=== PATIENT | female | born 1985 | race Caucasian/White ===

== ENCOUNTER 2017-12-08 14:25 | Inpatient (IN) | payer BC ==
[2017-12-08 17:43] VITALS: BMI 25.5
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
[2017-12-08] MEDS ORDERED: ALBUTEROL SO4 8 GM HFA INHALER IH PRN (19:42)
[2017-12-08] MEDS ORDERED: guaiFENesin/D-METHORPHAN HB 10 ML UNIT-DOSE CUPS PO PRN (19:43)
[2017-12-08] MEDS ORDERED: chlordiazePOXIDE HCL 25 MG CAPSULE PO PRN (19:43)
[2017-12-08] MEDS ORDERED: MAGNESIUM HYDROX 2400MG/30ML ORAL SUSPENSION 30 ML CUP PO PRN (19:43)
[2017-12-08] MEDS ORDERED: IBUPROFEN 400 MG TABLET (FP) PO PRN (19:43)
[2017-12-08] MEDS ORDERED: METHADONE HCL 10 MG TABLET (FOR DETOX USE ONLY) PO ONE ×2 (19:43→23:00)
[2017-12-08] MEDS ORDERED: chlordiazePOXIDE HCL 25 MG CAPSULE PO ONE (19:43)
[2017-12-08] MEDS ORDERED: MENTHOL/PHENOL 1 EACH UD MM PRN (19:43)
[2017-12-08] MEDS ORDERED: MAG HYDROX/AL HYDROX/SIMETH 30 ML UNIT-DOSE CUP PO PRN (19:43)
[2017-12-08] MEDS ORDERED: ACETAMINOPHEN 325 MG TABLET (FP) PO PRN (19:43)
[2017-12-08] MEDS ORDERED: LOPERAMIDE HCL 2 MG CAPSULE PO PRN (19:43)
[2017-12-08] MEDS ORDERED: NICOTINE POLACRILEX 2 MG GUM BC PRN (19:43)
[2017-12-08] MEDS ORDERED: MAGNESIUM CITRATE 300 ML BOTTLE PO PRN (19:43)
[2017-12-08] MEDS ORDERED: P-EPHED 60MG/TRIPROLIDI 2.5MG TABLET PO PRN (19:43)
[2017-12-08] MEDS ORDERED: ALBUTEROL SO4 0.083% IH SOL 2.5 MG/3 ML VIAL.NEB. NEB PRN (19:56)
[2017-12-08] MEDS ORDERED: diphenhydrAMINE HCL 25 MG CAPSULE (FP) PO ONE (22:00)
[2017-12-08] MEDS: chlordiazePOXIDE HCL 25 MG CAPSULE PO SCH (23:44)
[2017-12-08] MEDS: THIAMINE HCL 100 MG TABLET (FP) PO SCH (23:45)
[2017-12-09] MEDS: chlordiazePOXIDE HCL 25 MG CAPSULE PO SCH ×2 (05:01→10:50)
[2017-12-09] MEDS ORDERED: METHADONE HCL 10 MG TABLET (FOR DETOX USE ONLY) PO SCH (10:00)
--- NOTE | 2017-12-09 10:11 | PN ---
S CIWA - CIWA Score Nausea/Vomitin-Mild Nausea/No Vomiting Muscle Tremors: 4-Moderate,w/Arms Extend Anxiety: 3 Agitation: 3 Paroxysmal Sweats: 1-Minimal Palms Moist Orientation: 0-Oriented Tacttile Disturbances: 1-Very Mild Itch/Numbness Auditory Disturbances: 0-None Visual Disturbances: 0-None Headache: 0-None Present CIWA-Ar Total Score: 13 [facility] COWS - Scale Resting Pulse: 0= [place] 80 or Below Sweatin= Chills/Flushing Restless Observation: 1= Difficult to Sit Still Pupil Size: 0= Normal to Room Light Bone or Joint Aches: 2= Severe Diffuse Aches Runny Nose/ Eye Tearin= Nasal Congestion GI Upset > 30mins: 2= Nausea/Diarrhea Tremor Observation of Outstretched Hands: 2= Slight Tremor Visible Yawning Observation: 2= >3x During Session Anxiety or Irritability: 2=Irritable/Anxious Goose Flesh Skin: 0=Smooth Skin COWS Score: 13 S Progress Note (SOAP) Subjective: joints pain restlessness anxiety sweat tremor irritable Objective: 12/09/17 10:11 Vital Signs Temperature 98.3 F 12/09/17 09:46 Pulse Rate 79 12/09/17 09:46 Respiratory Rate 18 12/09/17 09:46 Blood Pressure 104/65 12/09/17 09:46 O2 Sat by Pulse Oximetry (%) lab not available Assessment: 12/09/17 10:12 withdrawal sx Plan: continue detox
[2017-12-09 10:18] LABS: HEMATOCRIT 36.5 % (32.4-45.2); HEMOGLOBIN 12.2 GM/dL (10.7-15.3); MCH 30.1 pg (25.7-33.7); MCHC 33.4 g/dl (32.0-36.0); MEAN CELL VOLUME 90.1 fl (80-96); MEAN PLT VOLUME 8.4 fl (7.5-11.1); PLATELET COUNT 323 K/MM3 (134-434); RBC 4.05 M/mm3 (3.60-5.2); RDW 14.9 % (11.6-15.6); WHITE BLOOD COUNT 9.5 K/mm3 (4.0-10.0)
[2017-12-09 10:28] LABS: CHLORIDE 106 mmol/L (98-107); POTASSIUM 4.2 mmol/L (3.5-5.1); SODIUM 143 mmol/L (136-145)
[2017-12-09 10:41] LABS: ALBUMIN 3.4 g/dl (3.4-5.0); ALK PHOS 50 U/L (45-117); ANION GAP 9 MMOL/L (8-16); BILIRUBIN,TOTAL 0.2 mg/dL (0.2-1); BLOOD UREA NITROGEN 13 mg/dL (7-18); CALCIUM 8.9 mg/dL (8.5-10.1); CO2 28 mmol/L (21-32); CREATININE 0.7 mg/dL (0.55-1.3); GLUCOSE,RANDOM 83 mg/dL (74-106); SGOT/AST 9 U/L (15-37); SGPT/ALT 16 U/L (13-61); TOT PROT 6.3 g/dl (6.4-8.2)
[2017-12-09] MEDS: PRENATAL VITAMINS W/ FOLIC ACID TABLET (FP) PO SCH (10:50)
[2017-12-09] MEDS: NICOTINE 21 MG/24 HOURS TOPICAL PATCH TD SCH (10:51)
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
[2017-12-09] MEDS: GABAPENTIN 300 MG CAPSULE (FP) PO SCH ×2 (14:21→23:02)
[2017-12-09] MEDS: hydrOXYzine PAMOATE 50 MG CAPSULE (FP) PO PRN (16:38)
--- NOTE | 2017-12-09 16:45 | EKG ---
Test Reason : Blood Pressure : / mmHG Vent. Rate : 062 BPM Atrial Rate : 062 BPM P-R Int : 110 ms QRS Dur : 084 ms QT Int : 434 ms P-R-T Axes : -06 037 032 degrees QTc Int : 440 ms SINUS RHYTHM WITH SHORT TX OTHERWISE NORMAL ECG WHEN COMPARED WITH ECG OF 04-JUN-2017 09:13, NO SIGNIFICANT CHANGE WAS FOUND Confirmed by Morris Menjivar ([id number]) on 12/09/2017 4:45:05 PM Referred By: Confirmed By:Morris Menjivar
[2017-12-09] MEDS ORDERED: diazePAM 5 MG TABLET PO ONE ×2 (18:00→22:00)
[2017-12-09] MEDS: diazePAM 5 MG TABLET PO PRN (19:27)
[2017-12-09] MEDS ORDERED: traZODone HCL 50 MG TABLET (FP) PO SCH (22:00)
[2017-12-09] MEDS ORDERED: chlordiazePOXIDE HCL 25 MG CAPSULE PO SCH (23:00)
[2017-12-09] MEDS: THIAMINE HCL 100 MG TABLET (FP) PO SCH (23:02)
[2017-12-10] MEDS: diazePAM 5 MG TABLET PO SCH ×3 (06:09→22:05)
[2017-12-10] MEDS: GABAPENTIN 300 MG CAPSULE (FP) PO SCH ×3 (06:09→22:05)
[2017-12-10] MEDS: METHADONE HCL 5 MG TABLET (FOR DETOX USE ONLY) PO SCH (10:45)
[2017-12-10] MEDS: PRENATAL VITAMINS W/ FOLIC ACID TABLET (FP) PO SCH (10:46)
[2017-12-10] MEDS: NICOTINE 21 MG/24 HOURS TOPICAL PATCH TD SCH (10:46)
[2017-12-10] MEDS: diazePAM 5 MG TABLET PO PRN ×2 (10:46→17:17)
--- NOTE | 2017-12-10 11:17 | PN ---
[facility] CIWA - CIWA Score Nausea/Vomitin-No Nausea/No Vomiting Muscle Tremors: 4-Moderate,w/Arms Extend Anxiety: 1-Mildly Anxious Agitation: 1-Slight > Activity Paroxysmal Sweats: No Perspiration Orientation: 0-Oriented Tacttile Disturbances: 0-None Auditory Disturbances: 0-None Visual Disturbances: 0-None Headache: 0-None Present CIWA-Ar Total Score: 6 S COWS - Scale Resting Pulse: 1= [place] 81-100 Sweatin= No chills or Flushing Restless Observation: 1= Difficult to Sit Still Pupil Size: 0= Normal to Room Light Bone or Joint Aches: 0= None Runny Nose/ Eye Tearin= None GI Upset > 30mins: 0= None Tremor Observation of Outstretched Hands: 2= Slight Tremor Visible Yawning Observation: 0= None Anxiety or Irritability: 0= None Goose Flesh Skin: 0=Smooth Skin COWS Score: 4 S Progress Note (SOAP) Subjective: C/o tremors and increased anxiety. Denies nausea/vomiting. Objective: A&O x3. Mild tremors of hands. Abd S/NT/BS+ 12/10/17 11:15 x Vital Signs 12/10/17 12/10/17 12/10/17 03:30 06:00 09:56 Temperature 97.3 F L 97.7 F Pulse Rate 74 86 Respiratory 18 18 20 Rate Blood Pressure 112/72 118/88 Lab Results WBC 9.5 K/mm3 (4.0-10.0) 12/09/17 07:00 RBC 4.05 M/mm3 (3.60-5.2) 12/09/17 07:00 Hgb 12.2 GM/dL (10.7-15.3) 12/09/17 07:00 Hct 36.5 % (32.4-45.2) 12/09/17 07:00 MCV 90.1 fl (80-96) 12/09/17 07:00 MCHC 33.4 g/dl (32.0-36.0) 12/09/17 07:00 RDW 14.9 % (11.6-15.6) 12/09/17 07:00 Plt Count 323 K/MM3 (134-434) 12/09/17 07:00 Sodium 143 mmol/L (136-145) 12/09/17 07:00 Potassium 4.2 mmol/L (3.5-5.1) 12/09/17 07:00 Chloride 106 mmol/L (98-107) 12/09/17 07:00 Carbon Dioxide 28 mmol/L (21-32) 12/09/17 07:00 Anion Gap 9 MMOL/L (8-16) 12/09/17 07:00 BUN 13 mg/dL (7-18) 12/09/17 07:00 Creatinine 0.7 mg/dL (0.55-1.3) 12/09/17 07:00 Random Glucose 83 mg/dL (74-106) 12/09/17 07:00 Calcium 8.9 mg/dL (8.5-10.1) 12/09/17 07:00 Labs reviewed. Assessment: Withdrawal symptoms. Plan: Continue detox. Encourage prn vistaril
[2017-12-10] MEDS: ESCITALOPRAM OXALATE 20 MG TABLET (FP) PO SCH (13:31)
[2017-12-10 16:08] LABS: URINE APPEARANCE CLEAR; URINE BILIRUBIN NEGATIVE (<2.0 mg/dL); URINE COLOR STRAW; URINE GLUCOSE (UA) NEGATIVE (NEGATIVE); URINE KETONE NEGATIVE (NEGATIVE); URINE LEUK ESTERASE TRACE (NEGATIVE); URINE NITRITE NEGATIVE (NEGATIVE); URINE PROTEIN NEGATIVE (NEGATIVE); URINE UROBILINOGEN NEGATIVE mg/dL (0.2-1.0)
[2017-12-10 16:35] LABS: EPI CELLS RARE /HPF (FEW); URINE MUCUS RARE
--- NOTE | 2017-12-10 18:09 | PN ---
[facility] Progress Note Note: Psychiatric nurse practitioner note: Patient reports poor sleep with trazodone 50mg. Pt. requesting seroquel 50mg for insomnia
[2017-12-10] MEDS: QUEtiapine FUMARATE 50 MG TABLET PO SCH (22:05)
[2017-12-10] MEDS: THIAMINE HCL 100 MG TABLET (FP) PO SCH (22:05)
[2017-12-10] MEDS ORDERED: chlordiazePOXIDE 5 MG CAPSULE PO SCH (23:00)
[2017-12-11] MEDS: diazePAM 5 MG TABLET PO PRN ×4 (06:00→22:28)
[2017-12-11] MEDS: GABAPENTIN 300 MG CAPSULE (FP) PO SCH ×3 (06:00→22:28)
[2017-12-11] MEDS: ESCITALOPRAM OXALATE 20 MG TABLET (FP) PO SCH (10:39)
[2017-12-11] MEDS: METHADONE HCL 5 MG TABLET (FOR DETOX USE ONLY) PO SCH (10:40)
[2017-12-11] MEDS: PRENATAL VITAMINS W/ FOLIC ACID TABLET (FP) PO SCH (10:40)
[2017-12-11] MEDS: diazePAM 5 MG TABLET PO SCH ×2 (10:40→22:30)
[2017-12-11] MEDS: NICOTINE 21 MG/24 HOURS TOPICAL PATCH TD SCH (10:42)
--- NOTE | 2017-12-11 11:45 | PN ---
[facility] Progress Note (SOAP) Subjective: sweat tremor body aches joints pain restlessness trouble sleep at night Objective: 12/11/17 11:44 Vital Signs Temperature 97.5 F L 12/11/17 10:19 Pulse Rate 87 12/11/17 10:19 Respiratory Rate 18 12/11/17 10:19 Blood Pressure 131/77 12/11/17 10:19 O2 Sat by Pulse Oximetry (%) Laboratory Last Values WBC 9.5 K/mm3 (4.0-10.0) 12/09/17 07:00 RBC 4.05 M/mm3 (3.60-5.2) 12/09/17 07:00 Hgb 12.2 GM/dL (10.7-15.3) 12/09/17 07:00 Hct 36.5 % (32.4-45.2) 12/09/17 07:00 MCV 90.1 fl (80-96) 12/09/17 07:00 MCH 30.1 pg (25.7-33.7) 12/09/17 07:00 MCHC 33.4 g/dl (32.0-36.0) 12/09/17 07:00 RDW 14.9 % (11.6-15.6) 12/09/17 07:00 Plt Count 323 K/MM3 (134-434) 12/09/17 07:00 MPV 8.4 fl (7.5-11.1) 12/09/17 07:00 Sodium 143 mmol/L (136-145) 12/09/17 07:00 Potassium 4.2 mmol/L (3.5-5.1) 12/09/17 07:00 Chloride 106 mmol/L (98-107) 12/09/17 07:00 Carbon Dioxide 28 mmol/L (21-32) 12/09/17 07:00 Anion Gap 9 MMOL/L (8-16) 12/09/17 07:00 BUN 13 mg/dL (7-18) 12/09/17 07:00 Creatinine 0.7 mg/dL (0.55-1.3) 12/09/17 07:00 Creat Clearance w eGFR > 60 (>60) 12/09/17 07:00 Random Glucose 83 mg/dL (74-106) 12/09/17 07:00 Calcium 8.9 mg/dL (8.5-10.1) 12/09/17 07:00 Total Bilirubin 0.2 mg/dL (0.2-1) 12/09/17 07:00 AST 9 U/L (15-37) L 12/09/17 07:00 ALT 16 U/L (13-61) 12/09/17 07:00 Alkaline Phosphatase 50 U/L (45-117) 12/09/17 07:00 Total Protein 6.3 g/dl (6.4-8.2) L 12/09/17 07:00 Albumin 3.4 g/dl (3.4-5.0) 12/09/17 07:00 Urine Color Straw 12/10/17 10:15 Urine Appearance Clear 12/10/17 10:15 Urine pH 5.0 (5.0-8.0) 12/10/17 10:15 Ur Specific [place] 1.009 (1.001-1.035) 12/10/17 10:15 Urine Protein Negative (NEGATIVE) 12/10/17 10:15 Urine Glucose (UA) Negative (NEGATIVE) 12/10/17 10:15 Urine Ketones Negative (NEGATIVE) 12/10/17 10:15 Urine Blood Negative (NEGATIVE) 12/10/17 10:15 Urine Nitrite Negative (NEGATIVE) 12/10/17 10:15 Urine Bilirubin Negative (<2.0 mg/dL) 12/10/17 10:15 Urine Urobilinogen Negative mg/dL (0.2-1.0) 12/10/17 10:15 Ur Leukocyte Esterase Trace (NEGATIVE) 12/10/17 10:15 Urine WBC (Auto) 3 /hpf (3-5) 12/10/17 10:15 Urine RBC (Auto) 1 /hpf (0-3) 12/10/17 10:15 Ur Epithelial Cells Rare /HPF (FEW) 12/10/17 10:15 Urine Mucus Rare 12/10/17 10:15 RPR Titer Nonreactive (NONREACTIVE) 12/09/17 07:00 HIV 1&2 Antibody Screen Negative 12/09/17 07:00 HIV P24 Antigen Negative 12/09/17 07:00 lab noted Assessment: 12/11/17 11:44 withdrawal sx Plan: continue detox
[2017-12-11] MEDS: THIAMINE HCL 100 MG TABLET (FP) PO SCH (22:27)
[2017-12-11] MEDS: QUEtiapine FUMARATE 50 MG TABLET PO SCH (22:29)
[2017-12-11] MEDS ORDERED: chlordiazePOXIDE HCL 10 MG CAPSULE PO SCH (23:00)
[2017-12-12] MEDS: GABAPENTIN 300 MG CAPSULE (FP) PO SCH ×3 (06:08→22:25)
[2017-12-12] MEDS: diazePAM 5 MG TABLET PO PRN ×2 (06:09→13:52)
[2017-12-12] MEDS ORDERED: METHADONE HCL 10 MG TABLET (FOR DETOX USE ONLY) PO SCH (10:00)
[2017-12-12] MEDS ORDERED: diazePAM 5 MG TABLET PO SCH (10:00)
[2017-12-12] MEDS: ESCITALOPRAM OXALATE 20 MG TABLET (FP) PO SCH (10:34)
[2017-12-12] MEDS: PRENATAL VITAMINS W/ FOLIC ACID TABLET (FP) PO SCH (10:34)
[2017-12-12] MEDS: NICOTINE 21 MG/24 HOURS TOPICAL PATCH TD SCH (10:35)
--- NOTE | 2017-12-12 14:06 | PN ---
[facility] Progress Note Note: PATIENT TOLERATING DETOX WELL. MILD ANXIETY REGARDING DISCHARGE TOMORROW. PATIENT ARRANGING OUTPATIENT TREATMENT AT [facility]. MEDICALLY STABLE. IN NAD. ALERT AND ORIENTED X 3. SKIN WARM AND DRY. CAR SIS2. RESP CTA BL. EXT NO EDEMA. Vital Signs Temperature 98.1 F 12/12/17 13:36 Pulse Rate 88 12/12/17 13:36 Respiratory Rate 18 12/12/17 13:36 Blood Pressure 120/57 L 12/12/17 13:36 O2 Sat by Pulse Oximetry (%) Laboratory Tests 12/09/17 12/09/17 12/09/17 07:00 07:00 07:00 WBC 9.5 RBC 4.05 Hgb 12.2 Hct 36.5 MCV 90.1 MCH 30.1 MCHC 33.4 RDW 14.9 Plt Count 323 MPV 8.4 Sodium 143 Potassium 4.2 Chloride 106 Carbon Dioxide 28 Anion Gap 9 BUN 13 Creatinine 0.7 Creat Clearance w eGFR > 60 Random Glucose 83 Calcium 8.9 Total Bilirubin 0.2 AST 9 L ALT 16 Alkaline Phosphatase 50 Total Protein 6.3 L Albumin 3.4 Urine Color Urine Appearance Urine pH Ur Specific [place] Urine Protein Urine Glucose (UA) Urine Ketones Urine Blood Urine Nitrite Urine Bilirubin Urine Urobilinogen Ur Leukocyte Esterase Urine WBC (Auto) Urine RBC (Auto) Ur Epithelial Cells Urine Mucus RPR Titer HIV 1&2 Antibody Screen Negative HIV P24 Antigen Negative 12/09/17 12/10/17 07:00 10:15 WBC RBC Hgb Hct MCV MCH MCHC RDW Plt Count MPV Sodium Potassium Chloride Carbon Dioxide Anion Gap BUN Creatinine Creat Clearance w eGFR Random Glucose Calcium Total Bilirubin AST ALT Alkaline Phosphatase Total Protein Albumin Urine Color Straw Urine Appearance Clear Urine pH 5.0 Ur Specific [place] 1.009 Urine Protein Negative Urine Glucose (UA) Negative Urine Ketones Negative Urine Blood Negative Urine Nitrite Negative Urine Bilirubin Negative Urine Urobilinogen Negative Ur Leukocyte Esterase Trace Urine WBC (Auto) 3 Urine RBC (Auto) 1 Ur Epithelial Cells Rare Urine Mucus Rare RPR Titer Nonreactive HIV 1&2 Antibody Screen HIV P24 Antigen A/P WITHDRAWAL SYNDROME PATIENT MEDICALLY STABLE CONTINUE DETOX PER PROTOCOL
[2017-12-12] MEDS: hydrOXYzine PAMOATE 50 MG CAPSULE (FP) PO PRN ×2 (19:03→22:22)
[2017-12-12] MEDS ORDERED: diazePAM 5 MG TABLET PO ONE (22:00)
[2017-12-12] MEDS: QUEtiapine FUMARATE 50 MG TABLET PO SCH (22:22)
[2017-12-12] MEDS: THIAMINE HCL 100 MG TABLET (FP) PO SCH (23:20)
[2017-12-13] MEDS ORDERED: METHADONE HCL 5 MG TABLET (FOR DETOX USE ONLY) PO SCH (06:00)
[2017-12-13] MEDS: GABAPENTIN 300 MG CAPSULE (FP) PO SCH (06:01)
[2017-12-13 06:42] VITALS: TEMP 97.2
[2017-12-13] MEDS: ESCITALOPRAM OXALATE 20 MG TABLET (FP) PO SCH (09:22)
[2017-12-13] MEDS: PRENATAL VITAMINS W/ FOLIC ACID TABLET (FP) PO SCH (09:22)
[2017-12-13] MEDS: hydrOXYzine PAMOATE 50 MG CAPSULE (FP) PO PRN (09:22)
[2017-12-13] MEDS: NICOTINE 21 MG/24 HOURS TOPICAL PATCH TD SCH (09:23)
[2017-12-13 10:25] VITALS: BP 130/80; PULSE 62
--- NOTE | 2017-12-13 13:58 | DS ---
[facility] Detox Discharge Summary Admission Date: 12/08/17 Discharge Date: 12/13/17 - History Present History: Alcohol Dependence, Cannabis Dependence, Cocaine Dependence, Opioid Dependence, Sedative Dependence, Pcp Dependence Additional Comments: Asthma, drug induced seizure disorder - Physical Exam Results Vital Signs: Vital Signs Temperature 97.2 F L 12/13/17 08:35 Pulse Rate 62 12/13/17 08:35 Respiratory Rate 18 12/13/17 08:35 Blood Pressure 130/80 12/13/17 08:35 O2 Sat by Pulse Oximetry (%) Pertinent Admission Physical Exam Findings: Withdrawal sx Laboratory Last Values WBC 9.5 K/mm3 (4.0-10.0) 12/09/17 07:00 RBC 4.05 M/mm3 (3.60-5.2) 12/09/17 07:00 Hgb 12.2 GM/dL (10.7-15.3) 12/09/17 07:00 Hct 36.5 % (32.4-45.2) 12/09/17 07:00 MCV 90.1 fl (80-96) 12/09/17 07:00 MCH 30.1 pg (25.7-33.7) 12/09/17 07:00 MCHC 33.4 g/dl (32.0-36.0) 12/09/17 07:00 RDW 14.9 % (11.6-15.6) 12/09/17 07:00 Plt Count 323 K/MM3 (134-434) 12/09/17 07:00 MPV 8.4 fl (7.5-11.1) 12/09/17 07:00 Sodium 143 mmol/L (136-145) 12/09/17 07:00 Potassium 4.2 mmol/L (3.5-5.1) 12/09/17 07:00 Chloride 106 mmol/L (98-107) 12/09/17 07:00 Carbon Dioxide 28 mmol/L (21-32) 12/09/17 07:00 Anion Gap 9 MMOL/L (8-16) 12/09/17 07:00 BUN 13 mg/dL (7-18) 12/09/17 07:00 Creatinine 0.7 mg/dL (0.55-1.3) 12/09/17 07:00 Creat Clearance w eGFR > 60 (>60) 12/09/17 07:00 Random Glucose 83 mg/dL (74-106) 12/09/17 07:00 Calcium 8.9 mg/dL (8.5-10.1) 12/09/17 07:00 Total Bilirubin 0.2 mg/dL (0.2-1) 12/09/17 07:00 AST 9 U/L (15-37) L 12/09/17 07:00 ALT 16 U/L (13-61) 12/09/17 07:00 Alkaline Phosphatase 50 U/L (45-117) 12/09/17 07:00 Total Protein 6.3 g/dl (6.4-8.2) L 12/09/17 07:00 Albumin 3.4 g/dl (3.4-5.0) 12/09/17 07:00 Urine Color Straw 12/10/17 10:15 Urine Appearance Clear 12/10/17 10:15 Urine pH 5.0 (5.0-8.0) 12/10/17 10:15 Ur Specific [place] 1.009 (1.001-1.035) 12/10/17 10:15 Urine Protein Negative (NEGATIVE) 12/10/17 10:15 Urine Glucose (UA) Negative (NEGATIVE) 12/10/17 10:15 Urine Ketones Negative (NEGATIVE) 12/10/17 10:15 Urine Blood Negative (NEGATIVE) 12/10/17 10:15 Urine Nitrite Negative (NEGATIVE) 12/10/17 10:15 Urine Bilirubin Negative (<2.0 mg/dL) 12/10/17 10:15 Urine Urobilinogen Negative mg/dL (0.2-1.0) 12/10/17 10:15 Ur Leukocyte Esterase Trace (NEGATIVE) 12/10/17 10:15 Urine WBC (Auto) 3 /hpf (3-5) 12/10/17 10:15 Urine RBC (Auto) 1 /hpf (0-3) 12/10/17 10:15 Ur Epithelial Cells Rare /HPF (FEW) 12/10/17 10:15 Urine Mucus Rare 12/10/17 10:15 RPR Titer Nonreactive (NONREACTIVE) 12/09/17 07:00 HIV 1&2 Antibody Screen Negative 12/09/17 07:00 HIV P24 Antigen Negative 12/09/17 07:00 Labs noted - Treatment Hospital Course: Detox Protocol Followed, Detoxed Safely, Responded well, Discharged Condition Good - Medication Discharge Medications: Ambulatory Orders Alprazolam [Xanax] 2 mg PO QID 06/03/17 Escitalopram Oxalate [Lexapro -] 40 mg PO DAILY #30 tablet 06/04/17 Albuterol Sulfate Inhaler - [Ventolin HFA Inhaler -] 2 inh PO Q4H PRN #1 inhaler 06/08/17 Gabapentin [Neurontin -] 300 mg PO BID #60 capsule 06/08/17 - Diagnosis (1) Alcohol dependence with withdrawal Status: Acute Qualifiers: Complication of substance-induced condition: uncomplicated Qualified Code(s ): F10.230 - Alcohol dependence with withdrawal, uncomplicated (2) Cannabis dependence, uncomplicated Status: Acute (3) Cocaine dependence, uncomplicated Status: Acute (4) Nicotine dependence Status: Acute Qualifiers: Nicotine product type: cigarettes (5) Opioid dependence with withdrawal Status: Acute (6) PCP (phencyclidine) abuse Status: Acute (7) Asthma Status: Chronic Qualifiers: Asthma severity: mild Asthma persistence: unspecified Asthma complication type: uncomplicated Qualified Code(s): J45.909 - Unspecified asthma, uncomplicated - AMA Did Patient Leave Against Medical Advice: No
== END 2017-12-13 10:12 | disposition home or self-care (01) | DRG 773 ==
LOC: YASAS 14:25 → Y6N 20:52
PROC: HZ2ZZZZ Detoxification Services for Substance Abuse Treatment (ICD-10-PCS; principal; 2017-12-08)
DX: F11.23 Opioid dependence with withdrawal (principal); F10.230 Alcohol dependence with withdrawal, uncomplicated; F13.230 Sedative, hypnotic or anxiolytic dependence with withdrawal, uncomplicated; F14.20 Cocaine dependence, uncomplicated; F16.20 Hallucinogen dependence, uncomplicated; F12.20 Cannabis dependence, uncomplicated; F17.210 Nicotine dependence, cigarettes, uncomplicated; F19.24 Other psychoactive substance dependence with psychoactive substance-induced mood disorder; F19.282 Other psychoactive substance dependence with psychoactive substance-induced sleep disorder; F32.9 Major depressive disorder, single episode, unspecified; J45.909 Unspecified asthma, uncomplicated; Z86.2 Personal history of diseases of the blood and blood-forming organs and certain disorders involving the immune mechanism; Z86.69 Personal history of other diseases of the nervous system and sense organs
CPT/HCPCS: 36415; 80053; 81003; 81015; 85027; 86593; 87389; 93005; 93010

== ENCOUNTER 2018-01-15 18:06 | Inpatient (IN) | payer BC ==
[2018-01-15 20:51] VITALS: BMI 25.1
--- NOTE | 2018-01-15 22:13 | HP ---
COWS - Scale Resting Pulse: 1= [place] 81-100 Sweatin=Flushed/Facial Moisture Restless Observation: 1= Difficult to Sit Still Pupil Size: 1= Pupils >than Normal Bone or Joint Aches: 4=Acute Joint/Muscle Pain Runny Nose/ Eye Tearin= Nasal Congestion GI Upset > 30mins: 2= Nausea/Diarrhea (diarrhea x 2) Tremor Observation: 4= Gross Tremor/Twitching Yawning Observation: 0= None Anxiety or Irritability: 2=Irritable/Anxious Goose Flesh Skin: 0=Smooth Skin COWS Score: 18 CIWA Score - CIWA Score Nausea/Vomitin-Mild Nausea/No Vomiting Muscle Tremors: 4-Moderate,w/Arms Extend Anxiety: 3 Agitation: 3 Paroxysmal Sweats: 2 Orientation: 0-Oriented Tacttile Disturbances: 0-None Auditory Disturbances: 0-None Visual Disturbances: 0-None Headache: 5-Severe CIWA-Ar Total Score: 18 Admission [facility] - HPI Chief Complaint: Heroin and alcohol withdrawal symptoms Allergies/Adverse Reactions: Allergies Allergy/AdvReac Type Severity Reaction Status Date / Time No Known Allergies Allergy Verified 06/03/17 11:17 History of Present Illness: 32 years old female with about 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 Patient has been in previous detox and reports four years of sobriety. She has medical history of seizures, asthma, anemia, anxiety and depression. Patient is on Alprazolam 8mg ta blet oral daily. Dispensed on 01/13/2018 for 30 days as prescribed by Dr. Brad Lopez. Patient denies suicidal ideation at this time. Exam Limitations: No Limitations - Ebola screening Have you traveled outside of the country in the last 21 days: No (N) Have you had contact with anyone from an Ebola affected area: No Have you been sick,other than usual withdrawal symptoms: No Do you have a fever: No - Review of Systems Constitutional: Chills, Malaise, Changes in sleep, Weakness EENT: reports: No Symptoms Reported, Other (wears contact) Respiratory: reports: No Symptoms reported Cardiac: reports: No Symptoms Reported GI: reports: Diarrhea (x 2), Poor Appetite, Poor Fluid Intake, Vomiting : reports: No Symptoms Reported Musculoskeletal: reports: Back Pain Integumentary: reports: Dryness Neuro: reports: Tremors Endocrine: reports: No Symptoms Reported Hematology: reports: No Symptoms Reported Psychiatric: reports: Mood/Affect Appropiate, Orientated x3, Depressed Other Systems: Reviewed and Negative Patient History - Patient Medical History Hx Anemia: Yes (NOT CURRENTLY ON MED) Hx Asthma: Yes (MDI) Hx Chronic Obstructive Pulmonary Disease (COPD): No Hx Cancer: No Hx Cardiac Disorders: No Hx Congestive Heart Failure: No Hx Hypertension: No Hx Hypercholesterolemia: No Hx Pacemaker: No HX Cerebrovascular Accident: No Hx Seizures: Yes (xanax seizures last 1 tr ago.) Hx Dementia: No Hx Diabetes: No Hx Gastrointestinal Disorders: No Hx Liver Disease: No Hx Genitourinary Disorders: No Hx Sexually Transmitted Disorders: No Hx Renal Disease (ESRD): No Hx Thyroid Disease: No Hx Human Immunodeficiency Virus (HIV): No (NEGATIVE 2018) Hx Hepatitis C: No (NEGATIVE HX) Hx Depression: Yes (Lexapro, Seroquel) Hx Suicide Attempt: No (DENIES PAST OR PRESENT S/I) Hx Bipolar Disorder: No Hx Schizophrenia: No Other Medical History: Anxiety - Xanax - Patient Surgical History Past Surgical History: Yes Hx Neurologic Surgery: No Hx Cataract Extraction: No Hx Cardiac Surgery: No Hx Lung Surgery: No Hx Breast Surgery: No Hx Breast Biopsy: No Hx Abdominal Surgery: No Hx Appendectomy: No Hx Cholecystectomy: No Hx Genitourinary Surgery: No Hx Section: Yes (2005, 2016) Hx Orthopedic Surgery: No Anesthesia Reaction: No - PPD History Previous Implant?: Yes Documented Results: Negative w/proof Implanted On Prior [facility] Admission?: Yes Date: 06/05/17 PPD to be Administered?: No - Reproductive History Patient is a Female of Child Bearing Age (11 -55 yrs old): Yes Last Menstrual Period: 12/16/17 Patient : No - Smoking Cessation Smoking history: Current every day smoker Have you smoked in the past 12 months: Yes Aproximately how many cigarettes per day: 20 Hx Chewing Tobacco Use: No Initiated information on smoking cessation: Yes 'Breaking Loose' booklet given: 01/15/18 - Substance & Tx. History Hx Alcohol Use: Yes Hx Substance Use: Yes Substance Use Type: Cocaine, Heroin, Marijuana, Opiates, Tranquilizers Hx Substance Use Treatment: Yes ([facility]) - Substances Abused Alcohol Route: Oral Frequency: Daily Amount used: 6 PACK OF SALMON Age of first use: 29 Date of Last Use: 01/13/18 Heroin Route: Inhalation Frequency: Daily Amount used: 10 BAGS Age of first use: 27 Date of Last Use: 01/15/18 Family Disease History - Family Disease History Family Disease History: Heart Disease: Sister (HEART TRANSPLANT-), CA: Sister, Other: Grandparent ( ), Father (PARKINSONS DISEASE), Mother (HTN ) Admission Physical Exam [facility] - Vital Signs Vital Signs: Vital Signs - 24 hr 01/15/18 20:49 Temperature 97.7 F Pulse Rate 88 Respiratory 18 Rate Blood Pressure 109/70 - Physical General Appearance: Yes: Moderate Distress HEENTM: Yes: Normal ENT Inspection, Normal Voice, ANICETO Respiratory: Yes: Lungs Clear, Normal Breath Sounds, No Respiratory Distress Neck: Yes: Supple Breast: Yes: Breast Exam Deferred Cardiology: Yes: Regular Rhythm, Regular Rate Abdominal: Yes: Normal Bowel Sounds Genitourinary: Yes: Within Normal Limits Back: Yes: Within Normal Limits Musculoskeletal: Yes: Within Normal Limits Extremities: Yes: Tremors 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: Alert, Normal Mood/Affect Integumentary: Yes: Warm Lymphatic: Yes: Within Normal Limits - Diagnostic (1) Depression Current Visit: Yes Status: Chronic Qualifiers: Depression Type: unspecified Qualified Code(s): F32.9 - Major depressive disorder, single episode, unspecified (2) Anxiety Current Visit: Yes Status: Chronic (3) Cannabis dependence, uncomplicated Current Visit: Yes Status: Chronic (4) Cocaine dependence, uncomplicated Current Visit: Yes Status: Chronic (5) Nicotine dependence Current Visit: Yes Status: Chronic Qualifiers: Nicotine product type: cigarettes Substance use status: uncomplicated Qualified Code(s): F17.210 - Nicotine dependence, cigarettes, uncomplicated (6) Opioid dependence with withdrawal Current Visit: Yes Status: Chronic (7) Asthma Current Visit: Yes Status: Chronic Qualifiers: Asthma severity: mild Asthma persistence: unspecified Asthma complication type: uncomplicated Qualified Code(s): J45.909 - Unspecified asthma, uncomplicated (8) History of anemia Current Visit: Yes Status: Suspected (9) Hx of seizure disorder Current Visit: Yes Status: Suspected Cleared for Admission S - Detox or Rehab S Level of Care: Medically Managed Detox Regimen/Protocol: Methadone/Librium S Breath Alcohol Content Breath Alcohol Content: 0 Urine Pregancy Test - Result Urine Test Results: Negative- NO Line Present Urine Drug Screen - Results Drug Screen Negative: No Urine Drug Screen Results: THC-Marijuana, VAMSI-Cocaine, OPI-Opiates, BZO- Benzodiazepines, MTD-Methadone, OXY-Oxycodone, FEN-Fentanyl
[2018-01-15] MEDS ORDERED: MENTHOL/PHENOL 1 EACH UD MM PRN (22:24)
[2018-01-15] MEDS ORDERED: MAGNESIUM CITRATE 300 ML BOTTLE PO PRN (22:24)
[2018-01-15] MEDS ORDERED: chlordiazePOXIDE HCL 25 MG CAPSULE PO PRN (22:24)
[2018-01-15] MEDS ORDERED: METHADONE HCL 10 MG TABLET (FOR DETOX USE ONLY) PO ONE ×2 (22:24→23:00)
[2018-01-15] MEDS ORDERED: MAG HYDROX/AL HYDROX/SIMETH 30 ML UNIT-DOSE CUP PO PRN (22:24)
[2018-01-15] MEDS ORDERED: IBUPROFEN 400 MG TABLET (FP) PO PRN (22:24)
[2018-01-15] MEDS ORDERED: guaiFENesin/D-METHORPHAN HB 10 ML UNIT-DOSE CUPS PO PRN (22:24)
[2018-01-15] MEDS ORDERED: LOPERAMIDE HCL 2 MG CAPSULE PO PRN (22:24)
[2018-01-15] MEDS ORDERED: NICOTINE POLACRILEX 2 MG GUM BC PRN (22:24)
[2018-01-15] MEDS ORDERED: MAGNESIUM HYDROX 2400MG/30ML ORAL SUSPENSION 30 ML CUP PO PRN (22:24)
[2018-01-15] MEDS ORDERED: P-EPHED 60MG/TRIPROLIDI 2.5MG TABLET PO PRN (22:24)
[2018-01-15] MEDS ORDERED: ACETAMINOPHEN 325 MG TABLET (FP) PO PRN (22:24)
[2018-01-15] MEDS ORDERED: ALBUTEROL SO4 8 GM HFA INHALER IH PRN (22:27)
[2018-01-15] MEDS ORDERED: chlordiazePOXIDE HCL 25 MG CAPSULE PO SCH (23:00)
[2018-01-16] MEDS ORDERED: chlordiazePOXIDE HCL 25 MG CAPSULE PO PRN (00:49)
[2018-01-16] MEDS ORDERED: chlordiazePOXIDE HCL 25 MG CAPSULE PO ONE (00:49)
[2018-01-16] MEDS ORDERED: METHADONE HCL 10 MG TABLET (FOR DETOX USE ONLY) PO ONE ×3 (00:56→23:00)
[2018-01-16] MEDS: chlordiazePOXIDE HCL 25 MG CAPSULE PO SCH ×4 (05:36→22:43)
--- NOTE | 2018-01-16 09:42 | EKG ---
Test Reason : Blood Pressure : / mmHG Vent. Rate : 078 BPM Atrial Rate : 078 BPM P-R Int : 120 ms QRS Dur : 080 ms QT Int : 382 ms P-R-T Axes : 022 037 022 degrees QTc Int : 435 ms NORMAL SINUS RHYTHM NORMAL ECG WHEN COMPARED WITH ECG OF 08-DEC-2017 23:12, NO SIGNIFICANT CHANGE WAS FOUND Confirmed by LYNETTE RANDLE MD ([id number]) on 01/16/2018 9:42:10 AM Referred By: Confirmed By:LYNETTE RANDLE MD
[2018-01-16] MEDS ORDERED: METHADONE HCL 10 MG TABLET (FOR DETOX USE ONLY) PO SCH (10:00)
[2018-01-16] MEDS: PRENATAL VITAMINS W/ FOLIC ACID TABLET (FP) PO SCH (10:24)
[2018-01-16] MEDS: NICOTINE 14 MG/24 HOURS TOPICAL PATCH TD SCH (10:25)
[2018-01-16 10:36] LABS: HEMATOCRIT 35.1 % (32.4-45.2); HEMOGLOBIN 11.9 GM/dL (10.7-15.3); MCH 30.8 pg (25.7-33.7); MEAN CELL VOLUME 90.4 fl (80-96); MEAN PLT VOLUME 8.9 fl (7.5-11.1); PLATELET COUNT 321 K/MM3 (134-434); RBC 3.88 M/mm3 (3.60-5.2); RDW 15.2 % (11.6-15.6); WHITE BLOOD COUNT 10.3 K/mm3 (4.0-10.0)
[2018-01-16 10:44] LABS: ALBUMIN 3.1 g/dl (3.4-5.0); ALK PHOS 57 U/L (45-117); ANION GAP 8 MMOL/L (8-16); BILIRUBIN,TOTAL 0.2 mg/dL (0.2-1); BLOOD UREA NITROGEN 16 mg/dL (7-18); CALCIUM 8.3 mg/dL (8.5-10.1); CHLORIDE 106 mmol/L (98-107); CO2 29 mmol/L (21-32); CREATININE 0.9 mg/dL (0.55-1.3); GLUCOSE,RANDOM 97 mg/dL (74-106); SGOT/AST 16 U/L (15-37); SGPT/ALT 23 U/L (13-61); SODIUM 143 mmol/L (136-145)
--- NOTE | 2018-01-16 11:44 | PN ---
S CIWA - CIWA Score Nausea/Vomitin-No Nausea/No Vomiting Muscle Tremors: 4-Moderate,w/Arms Extend Anxiety: 3 Agitation: 4-Moderately Restless Paroxysmal Sweats: 3 Orientation: 0-Oriented Tacttile Disturbances: 0-None Auditory Disturbances: 0-None Visual Disturbances: 0-None Headache: 0-None Present CIWA-Ar Total Score: 14 [facility] COWS - Scale Resting Pulse: 1= [place] 81-100 Sweatin=Flushed/Facial Moisture Restless Observation: 1= Difficult to Sit Still Pupil Size: 0= Normal to Room Light Bone or Joint Aches: 2= Severe Diffuse Aches Runny Nose/ Eye Tearin= Runny Nose/Eyes GI Upset > 30mins: 0= None Tremor Observation of Outstretched Hands: 2= Slight Tremor Visible Yawning Observation: 2= >3x During Session Anxiety or Irritability: 2=Irritable/Anxious Goose Flesh Skin: 0=Smooth Skin COWS Score: 14 S Progress Note (SOAP) Subjective: shakes sweats body aches agitation interrupted sleep chills Objective: 01/16/18 11:43 Vital Signs Temperature 97.9 F 01/16/18 09:52 Pulse Rate 94 H 01/16/18 09:52 Respiratory Rate 17 01/16/18 09:52 Blood Pressure 121/69 01/16/18 09:52 O2 Sat by Pulse Oximetry (%) Laboratory Tests 01/16/18 01/16/18 07:00 07:00 WBC 10.3 H RBC 3.88 Hgb 11.9 Hct 35.1 MCV 90.4 MCH 30.8 MCHC 34.0 RDW 15.2 Plt Count 321 MPV 8.9 Sodium 143 Potassium 4.0 Chloride 106 Carbon Dioxide 29 Anion Gap 8 BUN 16 Creatinine 0.9 Creat Clearance w eGFR > 60 Random Glucose 97 Calcium 8.3 L Total Bilirubin 0.2 AST 16 ALT 23 Alkaline Phosphatase 57 Total Protein 6.0 L Albumin 3.1 L rest of labs pending aaox3 lying in bed no acute distress Assessment: 01/16/18 11:44 withdrawal sx Plan: continue detox increase fluids pending labs
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
[2018-01-16] MEDS: THIAMINE HCL 100 MG TABLET (FP) PO SCH (22:44)
[2018-01-16] MEDS: QUEtiapine FUMARATE 50 MG TABLET PO SCH (22:44)
[2018-01-16] MEDS: GABAPENTIN 300 MG CAPSULE (FP) PO SCH (22:44)
[2018-01-16] MEDS ORDERED: chlordiazePOXIDE HCL 25 MG CAPSULE PO SCH (23:00)
[2018-01-17] MEDS: GABAPENTIN 300 MG CAPSULE (FP) PO SCH ×3 (05:40→22:20)
[2018-01-17] MEDS: chlordiazePOXIDE HCL 25 MG CAPSULE PO SCH ×4 (05:40→22:19)
[2018-01-17] MEDS ORDERED: METHADONE HCL 10 MG TABLET (FOR DETOX USE ONLY) PO ONE (10:00)
[2018-01-17] MEDS ORDERED: METHADONE HCL 5 MG TABLET (FOR DETOX USE ONLY) PO SCH (10:00)
[2018-01-17] MEDS: PRENATAL VITAMINS W/ FOLIC ACID TABLET (FP) PO SCH (10:23)
[2018-01-17] MEDS: ESCITALOPRAM OXALATE 20 MG TABLET (FP) PO SCH (10:23)
[2018-01-17] MEDS: NICOTINE 14 MG/24 HOURS TOPICAL PATCH TD SCH (10:29)
[2018-01-17] MEDS ORDERED: NAPROXEN 500 MG TABLET (FP) PO SCH (12:15)
--- NOTE | 2018-01-17 17:32 | PN ---
[facility] CIWA - CIWA Score Nausea/Vomitin-Mild Nausea/No Vomiting Muscle Tremors: 2 Anxiety: 4-Mod. Anxious/Guarded Agitation: 4-Moderately Restless Paroxysmal Sweats: No Perspiration Orientation: 0-Oriented Tacttile Disturbances: 0-None Auditory Disturbances: 0-None Visual Disturbances: 0-None Headache: 0-None Present CIWA-Ar Total Score: 11 [facility] COWS - Scale Resting Pulse: 1= [place] 81-100 Sweatin= No chills or Flushing Restless Observation: 1= Difficult to Sit Still Pupil Size: 0= Normal to Room Light Bone or Joint Aches: 2= Severe Diffuse Aches Runny Nose/ Eye Tearin= None GI Upset > 30mins: 2= Nausea/Diarrhea (Mild nausea w/o vomiting.) Tremor Observation of Outstretched Hands: 1= Tremor [place], Not Seen Yawning Observation: 0= None Anxiety or Irritability: 2=Irritable/Anxious Goose Flesh Skin: 0=Smooth Skin COWS Score: 9 S Progress Note (SOAP) Subjective: C/o multiple withdrawal symptoms. (see COWS and CIWA) Also c/o inflammation both hips and requesting toradol injections. Objective: A&O x 3. Gait steady. No increased erythema or warmth of hips. Pacing unit. Vital Signs 01/17/18 01/17/18 09:36 14:14 Temperature 97.7 F 98.1 F Pulse Rate 91 H 79 Respiratory 16 18 Rate Blood Pressure 131/59 L 138/69 Lab Results WBC 10.3 K/mm3 (4.0-10.0) H 01/16/18 07:00 RBC 3.88 M/mm3 (3.60-5.2) 01/16/18 07:00 Hgb 11.9 GM/dL (10.7-15.3) 01/16/18 07:00 Hct 35.1 % (32.4-45.2) 01/16/18 07:00 MCV 90.4 fl (80-96) 01/16/18 07:00 MCHC 34.0 g/dl (32.0-36.0) 01/16/18 07:00 RDW 15.2 % (11.6-15.6) 01/16/18 07:00 Plt Count 321 K/MM3 (134-434) 01/16/18 07:00 Sodium 143 mmol/L (136-145) 01/16/18 07:00 Potassium 4.0 mmol/L (3.5-5.1) 01/16/18 07:00 Chloride 106 mmol/L (98-107) 01/16/18 07:00 Carbon Dioxide 29 mmol/L (21-32) 01/16/18 07:00 Anion Gap 8 MMOL/L (8-16) 01/16/18 07:00 BUN 16 mg/dL (7-18) 01/16/18 07:00 Creatinine 0.9 mg/dL (0.55-1.3) 01/16/18 07:00 Random Glucose 97 mg/dL (74-106) 01/16/18 07:00 Calcium 8.3 mg/dL (8.5-10.1) L 01/16/18 07:00 Labs reviewed. Assessment: Withdrawal symptoms Plan: Continue detox. Discussed management of pain w/ ibuprofen and its anti-inflammatory benefits as well as pain relief. Reviewed stress reduction exercises.
[2018-01-17] MEDS ORDERED: KETOROLAC TROMETHAMINE 30 MG/1 ML VIAL IM ONE (20:48)
[2018-01-17] MEDS: QUEtiapine FUMARATE 50 MG TABLET PO SCH (22:20)
[2018-01-17] MEDS: MELATONIN 5 MG TABLETS PO PRN (22:20)
[2018-01-17] MEDS: THIAMINE HCL 100 MG TABLET (FP) PO SCH (22:20)
[2018-01-17] MEDS ORDERED: chlordiazePOXIDE 5 MG CAPSULE PO SCH (23:00)
[2018-01-17] MEDS: KETOROLAC TROMETHAMINE 10 MG TABLET PO PRN (23:03)
[2018-01-18] MEDS: chlordiazePOXIDE 5 MG CAPSULE PO SCH ×4 (05:51→22:16)
[2018-01-18] MEDS: GABAPENTIN 300 MG CAPSULE (FP) PO SCH ×3 (05:52→22:16)
[2018-01-18] MEDS ORDERED: METHADONE HCL 5 MG TABLET (FOR DETOX USE ONLY) PO ONE (10:00)
[2018-01-18] MEDS: PRENATAL VITAMINS W/ FOLIC ACID TABLET (FP) PO SCH (10:14)
[2018-01-18] MEDS: ESCITALOPRAM OXALATE 20 MG TABLET (FP) PO SCH (10:14)
[2018-01-18] MEDS: NICOTINE 14 MG/24 HOURS TOPICAL PATCH TD SCH (14:02)
[2018-01-18] MEDS ORDERED: BACLOFEN 10 MG TABLET (FP) PO ONE (14:45)
--- NOTE | 2018-01-18 14:53 | PN ---
[facility] Progress Note (SOAP) Subjective: anxiety restlessness patient reported that had bilateraly hip replacement 2009 taking oxycodone for pain wants tramadol wants toradol for pain discuss risks of tramadol and toradol adjacent with methadone patient agrees naproxin and muscle relaxnt help one dose of naproxin with one dose of baclofen patient wants xanax 8 mg that she is taking xanax 8 mg every day and patient wants the xanax 8 mg now discuss librium detox regimen for alcohol withdrawal sx patient stated that she has anxiety and taking xanax 8 mg and is doing well patient wants xanax encourage the patient discuss anxiety with psychiatrist that possible xanax replacement during the detox period and return home can becane xanax 8 mg po daily last filled 01/13/18 120 pills Objective: 01/18/18 15:01 Vital Signs Temperature 97.1 F L 01/18/18 14:18 Pulse Rate 96 H 01/18/18 14:18 Respiratory Rate 18 01/18/18 14:18 Blood Pressure 131/77 01/18/18 14:18 O2 Sat by Pulse Oximetry (%) Laboratory Last Values WBC 10.3 K/mm3 (4.0-10.0) H 01/16/18 07:00 RBC 3.88 M/mm3 (3.60-5.2) 01/16/18 07:00 Hgb 11.9 GM/dL (10.7-15.3) 01/16/18 07:00 Hct 35.1 % (32.4-45.2) 01/16/18 07:00 MCV 90.4 fl (80-96) 01/16/18 07:00 MCH 30.8 pg (25.7-33.7) 01/16/18 07:00 MCHC 34.0 g/dl (32.0-36.0) 01/16/18 07:00 RDW 15.2 % (11.6-15.6) 01/16/18 07:00 Plt Count 321 K/MM3 (134-434) 01/16/18 07:00 MPV 8.9 fl (7.5-11.1) 01/16/18 07:00 Sodium 143 mmol/L (136-145) 01/16/18 07:00 Potassium 4.0 mmol/L (3.5-5.1) 01/16/18 07:00 Chloride 106 mmol/L (98-107) 01/16/18 07:00 Carbon Dioxide 29 mmol/L (21-32) 01/16/18 07:00 Anion Gap 8 MMOL/L (8-16) 01/16/18 07:00 BUN 16 mg/dL (7-18) 01/16/18 07:00 Creatinine 0.9 mg/dL (0.55-1.3) 01/16/18 07:00 Creat Clearance w eGFR > 60 (>60) 01/16/18 07:00 Random Glucose 97 mg/dL (74-106) 01/16/18 07:00 Calcium 8.3 mg/dL (8.5-10.1) L 01/16/18 07:00 Total Bilirubin 0.2 mg/dL (0.2-1) 01/16/18 07:00 AST 16 U/L (15-37) 01/16/18 07:00 ALT 23 U/L (13-61) 01/16/18 07:00 Alkaline Phosphatase 57 U/L (45-117) 01/16/18 07:00 Total Protein 6.0 g/dl (6.4-8.2) L 01/16/18 07:00 Albumin 3.1 g/dl (3.4-5.0) L 01/16/18 07:00 RPR Titer Nonreactive (NONREACTIVE) 01/16/18 07:00 lab oted Assessment: 01/18/18 15:03 alcohol withdrawal sx opiate withdrawal sx Plan: continue detox from alcohol and opiate patient wants oxy for s/p hips replacement recommend methadone program or suboxone maintenaince program
[2018-01-18] MEDS ORDERED: NAPROXEN 500 MG TABLET (FP) PO ONE (15:00)
[2018-01-18] MEDS ORDERED: QUEtiapine FUMARATE 50 MG TABLET PO ONE (16:48)
--- NOTE | 2018-01-18 16:52 | PN ---
[facility] Progress Note Note: Psychiatric nurse practitioner inspector conveyor line note: Call received by nursing staff on 6N. Patient is labile, irritable, and demanding additional medications. Patient is disrupting the milieu and is having difficulty following directions from staff. Patient is complaining of worsening anxiety which is not being resolved with her current medication regime. Will order one time dose of seroquel 50mg qhs + vistaril 50mg q4h.
[2018-01-18] MEDS: hydrOXYzine PAMOATE 50 MG CAPSULE (FP) PO PRN ×2 (17:12→22:17)
[2018-01-18 20:48] LABS: URINE APPEARANCE CLOUDY; URINE BILIRUBIN NEGATIVE (<2.0 mg/dL); URINE COLOR YELLOW; URINE GLUCOSE (UA) NEGATIVE (NEGATIVE); URINE KETONE NEGATIVE (NEGATIVE); URINE LEUK ESTERASE TRACE (NEGATIVE); URINE NITRITE NEGATIVE (NEGATIVE); URINE PROTEIN NEGATIVE (NEGATIVE); URINE UROBILINOGEN NEGATIVE mg/dL (0.2-1.0)
[2018-01-18 20:54] LABS: EPI CELLS FEW /HPF (FEW); URINE MUCUS RARE
[2018-01-18] MEDS: MELATONIN 5 MG TABLETS PO PRN (22:16)
[2018-01-18] MEDS: KETOROLAC TROMETHAMINE 10 MG TABLET PO PRN (22:17)
[2018-01-18] MEDS: QUEtiapine FUMARATE 50 MG TABLET PO SCH (22:17)
[2018-01-18] MEDS: THIAMINE HCL 100 MG TABLET (FP) PO SCH (22:18)
[2018-01-18] MEDS ORDERED: chlordiazePOXIDE HCL 10 MG CAPSULE PO SCH (23:00)
[2018-01-19] MEDS: chlordiazePOXIDE HCL 10 MG CAPSULE PO SCH ×4 (05:27→22:28)
[2018-01-19] MEDS: GABAPENTIN 300 MG CAPSULE (FP) PO SCH ×3 (05:27→22:28)
[2018-01-19] MEDS ORDERED: HALOPERIDOL 2 MG TABLET PO PRN (08:18)
--- NOTE | 2018-01-19 09:25 | PN ---
Psychiatric Progress Note Vital Signs: Vital Signs Period Temp Pulse Resp BP Sys/Harrison Pulse Ox Last 24 Hr 97.1 F-97.9 F 72-96 18-18 105-147/64-80 Date of Session: 01/19/18 Chief Complaint:: aNXIETY, XANAX ADAN HPI: Patient reports anxiety amd agitation, irritability as well due to Xanax withdrawal as per patient, reports taking prior to admission 8mg of Xanax daily. Rec: Haldol 1mg po q4 prn for anxietyt. Patient reports Haldol 1mg is not en ough in the past. Rec: Haldol 2mg po q4 prn for agitation and anxiety. Benzthropin 1mg po bid Current Medications: Active Medications Generic Name Dose Route Start Last Admin Trade Name Freq PRN Reason Stop Dose Admin Acetaminophen 650 mg 01/15/18 22:24 Tylenol - PO Q4H PRN FEVER Al Hydroxide/Mg Hydroxide 30 ml 01/15/18 22:24 Mylanta Oral Suspension - PO Q6H PRN DYSPEPSIA Albuterol Sulfate 2 puff 01/15/18 22:27 Ventolin Hfa Inhaler - IH Q4H PRN ASTHMA Benztropine Mesylate 1 mg 01/19/18 10:00 Cogentin - PO BID ODETTE Chlordiazepoxide HCl 10 mg 01/19/18 05:00 01/19/18 05:27 Librium - PO 01/19/18 23:01 10 mg [id number] ODETTE Administration Escitalopram Oxalate 20 mg 01/17/18 10:00 01/18/18 10:14 Lexapro - PO 20 mg DAILY ODETTE Administration Eucalyptus/Menthol/Phenol/Sorbitol 1 each 01/15/18 22:24 Cepastat Lozenge - MM Q4H PRN SORE THROAT Gabapentin 600 mg 01/16/18 22:00 01/19/18 05:27 Neurontin - PO 600 mg TID ODETTE Administration Guaifenesin 10 ml 01/15/18 22:24 Robitussin Dm - PO Q6H PRN COUGH Haloperidol 2 mg 01/19/18 08:18 Haldol - PO Q4HWA PRN ANXIETY Haloperidol 2 mg 01/19/18 09:15 Haldol - PO Q4HWA PRN ANXIETY Hydroxyzine Pamoate 50 mg 01/18/18 16:48 01/18/18 22:17 Vistaril - PO 50 mg Q4H PRN Administration ANXIETY Ketorolac Tromethamine 10 mg 01/17/18 21:52 01/18/18 22:17 Toradol PO 01/22/18 00:00 10 mg Q6HPO PRN Administration PAIN LEVEL 1-5 Loperamide HCl 4 mg 01/15/18 22:24 Imodium - PO Q6H PRN DIARRHEA Magnesium Citrate 300 ml 01/15/18 22:24 Citroma - PO Q48H PRN CONSTIPATION Magnesium Hydroxide 30 ml 01/15/18 22:24 Milk Of Magnesia - PO DAILY PRN CONSTIPATION Melatonin 5 mg 01/15/18 22:00 01/18/18 22:16 Melatonin PO 5 mg HS PRN Administration INSOMNIA Methadone HCl 5 mg 01/21/18 06:00 Dolophine - PO 01/21/18 06:01 ONCE@0600 ONE Methadone HCl 15 mg 01/19/18 10:00 Dolophine - PO 01/19/18 10:01 ONCE ONE Methadone HCl 10 mg 01/20/18 10:00 Dolophine - PO 01/20/18 10:01 ONCE ONE Nicotine 14 mg 01/16/18 10:00 01/18/18 14:02 Nicoderm Patch - TD Not Given DAILY ODETTE Nicotine Polacrilex 2 mg 01/15/18 22:24 Nicorette Gum - BC Q2H PRN NICOTINE REPLACEMENT RX Multivit/Folic Acid/Iron 1 tab 01/16/18 10:00 01/18/18 10:14 Vitamins (Sjr) - PO 1 tab DAILY ODETTE Administration Pseudoephedrine/Triprolidine 1 combo 01/15/18 22:24 Actifed - PO TID PRN NASAL CONGESTION Quetiapine Fumarate 50 mg 01/16/18 22:00 01/18/18 22:17 Seroquel - PO 50 mg HS ODETTE Administration Thiamine HCl 100 mg 01/16/18 22:00 01/18/18 22:18 Vitamin B1 - PO 100 mg HS ODETTE Administration Medication(s) Change(s): Rec: Haldol 2mg po q4 prn for agitation and anxiety. Benzthropin 1mg po bid Mental Status Exam - Mental Status Exam Alert and Oriented to: Place, Person Cognitive Function: Fair Patient Appearance: Unkempt Mood: Anxious, Irritable Affect: Labile Patient Behavior: Cooperative Speech Pattern: Appropriate Voice Loudness: Normal Thought Process: Goal Oriented Thought Disorder: Being Controlled Hallucinations: Denies Suicidal Ideation: Denies Homicidal Ideation: Denies Insight/Judgement: Fair Sleep: Difficulty falling asleep Appetite: Weight gain Muscle strength/Tone: Normal Gait/Station: Normal Additional Comments: Rec: Haldol 2mg po q4 prn for agitation and anxiety. Benzthropin 1mg po bid Psychiatric Treatment Plan - Problem List (1) Opioid dependence with withdrawal Current Visit: Yes (2) Sedative hypnotic or anxiolytic dependence Current Visit: Yes (3) Substance induced mood disorder Current Visit: Yes (4) Substance-induced sleep disorder Current Visit: Yes (5) Anxiety Current Visit: Yes (6) Asthma Current Visit: Yes Qualifiers: Asthma severity: mild Asthma persistence: unspecified Asthma complication type: uncomplicated Qualified Code(s): J45.909 - Unspecified asthma, uncomplicated (7) Cannabis dependence, uncomplicated Current Visit: Yes (8) Cocaine dependence, uncomplicated Current Visit: Yes (9) Nicotine dependence Current Visit: Yes Qualifiers: Nicotine product type: cigarettes Substance use status: uncomplicated Qualified Code(s): F17.210 - Nicotine dependence, cigarettes, uncomplicated (10) History of anemia Current Visit: Yes (11) Hx of seizure disorder Current Visit: Yes (12) Alcohol dependence with withdrawal Current Visit: No Qualifiers: Complication of substance-induced condition: uncomplicated Qualified Code(s ): F10.230 - Alcohol dependence with withdrawal, uncomplicated (13) Benzodiazepine abuse Current Visit: No (14) Drug-induced mood disorder Current Visit: No (15) PCP (phencyclidine) abuse Current Visit: No (16) Substance induced mood disorder Current Visit: No (17) Substance-induced sleep disorder Current Visit: No Initial treatment plan: Rec: Haldol 2mg po q4 prn for agitation and anxiety. Benzthropin 1mg po bid
[2018-01-19] MEDS ORDERED: METHADONE HCL 10 MG TABLET (FOR DETOX USE ONLY) PO SCH (10:00)
[2018-01-19] MEDS ORDERED: METHADONE HCL 5 MG TABLET (FOR DETOX USE ONLY) PO ONE (10:00)
[2018-01-19] MEDS ORDERED: ESCITALOPRAM OXALATE 20 MG TABLET (FP) PO SCH (10:00)
--- NOTE | 2018-01-19 10:09 | PN ---
[facility] Progress Note (SOAP) Subjective: chronic hip pain sweats irritable agitation anxiety Objective: 01/19/18 10:06 Vital Signs Temperature 97.5 F L 01/19/18 06:00 Pulse Rate 72 01/19/18 06:00 Respiratory Rate 18 01/19/18 06:00 Blood Pressure 105/64 01/19/18 06:00 O2 Sat by Pulse Oximetry (%) aaox3 ambulating no acute distress Assessment: 01/19/18 10:06 withdrawal sx Plan: continue detox increase fluids advised pt she can ask for torodol as ordered for her pain. naproxen d/c because it is contraindicated lidocaine patch ordered
[2018-01-19] MEDS: PRENATAL VITAMINS W/ FOLIC ACID TABLET (FP) PO SCH (10:15)
[2018-01-19] MEDS: BENZTROPINE MESYLATE 1 MG TABLET (FP) PO SCH ×2 (10:15→22:25)
[2018-01-19] MEDS: ESCITALOPRAM OXALATE 20 MG TABLET (FP) PO SCH (10:15)
[2018-01-19] MEDS: NICOTINE 14 MG/24 HOURS TOPICAL PATCH TD SCH (10:16)
[2018-01-19] MEDS ORDERED: LIDOCAINE 5% TOPICAL PATCH TP ONE (10:30)
[2018-01-19] MEDS: HALOPERIDOL 1 MG TABLET (FP) PO PRN ×3 (11:31→22:29)
[2018-01-19] MEDS: KETOROLAC TROMETHAMINE 10 MG TABLET PO PRN (11:33)
[2018-01-19] MEDS: CYCLOBENZAPRINE HCL 10 MG TABLET (FP) PO PRN ×2 (14:45→22:29)
[2018-01-19] MEDS: hydrOXYzine PAMOATE 50 MG CAPSULE (FP) PO PRN (14:45)
[2018-01-19] MEDS ORDERED: LIDOCAINE PATCH REMOVAL MC SCH (22:00)
[2018-01-19] MEDS: THIAMINE HCL 100 MG TABLET (FP) PO SCH (22:28)
[2018-01-19] MEDS: QUEtiapine FUMARATE 50 MG TABLET PO SCH (22:29)
[2018-01-20] MEDS ORDERED: METHADONE HCL 5 MG TABLET (FOR DETOX USE ONLY) PO SCH (06:00)
[2018-01-20] MEDS: GABAPENTIN 300 MG CAPSULE (FP) PO SCH ×3 (06:01→22:22)
--- NOTE | 2018-01-20 09:08 | PN ---
[facility] Progress Note (SOAP) Subjective: I prefer naproxen and not torodol chronic back pain sweats Objective: 01/20/18 09:07 Vital Signs Temperature 97.7 F 01/20/18 07:42 Pulse Rate 83 01/20/18 07:42 Respiratory Rate 16 01/20/18 07:42 Blood Pressure 109/64 01/20/18 07:42 O2 Sat by Pulse Oximetry (%) aaox3 ambulating no acute distress Assessment: 01/20/18 09:08 mild withdrawal sx Plan: continue detox naproxen 500mg bid torodol d/c lidocaine patch ordered d/c in am
[2018-01-20] MEDS ORDERED: LIDOCAINE 5% TOPICAL PATCH TP ONE (09:15)
[2018-01-20] MEDS ORDERED: LIDOCAINE 5% TOPICAL PATCH TP SCH (10:00)
[2018-01-20] MEDS ORDERED: METHADONE HCL 10 MG TABLET (FOR DETOX USE ONLY) PO ONE (10:00)
[2018-01-20] MEDS: CYCLOBENZAPRINE HCL 10 MG TABLET (FP) PO PRN ×3 (10:22→22:23)
[2018-01-20] MEDS: NAPROXEN 500 MG TABLET (FP) PO SCH ×2 (10:23→22:22)
[2018-01-20] MEDS: BENZTROPINE MESYLATE 1 MG TABLET (FP) PO SCH ×2 (10:23→22:23)
[2018-01-20] MEDS: NICOTINE 14 MG/24 HOURS TOPICAL PATCH TD SCH (10:23)
[2018-01-20] MEDS: ESCITALOPRAM OXALATE 20 MG TABLET (FP) PO SCH (10:23)
[2018-01-20] MEDS: PRENATAL VITAMINS W/ FOLIC ACID TABLET (FP) PO SCH (10:23)
[2018-01-20] MEDS: HALOPERIDOL 1 MG TABLET (FP) PO PRN ×3 (10:25→22:23)
[2018-01-20] MEDS: hydrOXYzine PAMOATE 50 MG CAPSULE (FP) PO PRN ×3 (13:02→22:24)
[2018-01-20] MEDS ORDERED: LIDOCAINE PATCH REMOVAL MC SCH (22:00)
[2018-01-20] MEDS: THIAMINE HCL 100 MG TABLET (FP) PO SCH (22:22)
[2018-01-20] MEDS: QUEtiapine FUMARATE 50 MG TABLET PO SCH (22:23)
[2018-01-21] MEDS ORDERED: METHADONE HCL 5 MG TABLET (FOR DETOX USE ONLY) PO ONE (06:00)
[2018-01-21] MEDS: GABAPENTIN 300 MG CAPSULE (FP) PO SCH (06:11)
[2018-01-21] MEDS: CYCLOBENZAPRINE HCL 10 MG TABLET (FP) PO PRN (06:15)
[2018-01-21] MEDS: hydrOXYzine PAMOATE 50 MG CAPSULE (FP) PO PRN (06:18)
--- NOTE | 2018-01-21 08:48 | DS ---
[facility] Detox Discharge Summary Admission Date: 01/15/18 Discharge Date: 01/21/18 - History Present History: Alcohol Dependence, Cannabis Dependence, Opioid Dependence, Sedative Dependence, Pcp Dependence - Physical Exam Results Vital Signs: Vital Signs Temperature 97.3 F L 01/21/18 06:52 Pulse Rate 80 01/21/18 06:52 Respiratory Rate 18 01/21/18 06:52 Blood Pressure 124/79 01/21/18 06:52 O2 Sat by Pulse Oximetry (%) - Treatment Hospital Course: Detox Protocol Followed, Detoxed Safely, Responded well, Discharged Condition Good, Rehab Referral Accepted - Medication Discharge Medications: Ambulatory Orders Alprazolam [Xanax] 2 mg PO QID 06/03/17 Escitalopram Oxalate [Lexapro -] 40 mg PO DAILY #30 tablet 06/04/17 Albuterol Sulfate Inhaler - [Ventolin HFA Inhaler -] 2 inh PO Q4H PRN #1 inhaler 06/08/17 Gabapentin [Neurontin -] 300 mg PO BID #60 capsule 06/08/17 Escitalopram Oxalate [Lexapro -] 20 mg PO DAILY #30 tablet 01/19/18 - Diagnosis (1) Opioid dependence with withdrawal Current Visit: Yes Status: Chronic (2) Sedative hypnotic or anxiolytic dependence Current Visit: Yes Status: Chronic (3) Substance induced mood disorder Current Visit: Yes Status: Acute (4) Substance-induced sleep disorder Current Visit: Yes Status: Acute (5) Anxiety Current Visit: Yes Status: Chronic (6) Asthma Current Visit: Yes Status: Chronic Qualifiers: Asthma severity: mild Asthma persistence: unspecified Asthma complication type: uncomplicated Qualified Code(s): J45.909 - Unspecified asthma, uncomplicated (7) Cannabis dependence, uncomplicated Current Visit: Yes Status: Chronic (8) Cocaine dependence, uncomplicated Current Visit: Yes Status: Chronic (9) Depression Current Visit: Yes Status: Chronic Qualifiers: Depression Type: unspecified Qualified Code(s): F32.9 - Major depressive disorder, single episode, unspecified (10) Nicotine dependence Current Visit: Yes Status: Chronic Qualifiers: Nicotine product type: cigarettes Substance use status: uncomplicated Qualified Code(s): F17.210 - Nicotine dependence, cigarettes, uncomplicated (11) History of anemia Current Visit: Yes Status: Suspected (12) Hx of seizure disorder Current Visit: Yes Status: Suspected (13) Alcohol dependence with withdrawal Current Visit: Yes Status: Acute Qualifiers: Complication of substance-induced condition: uncomplicated Qualified Code(s ): F10.230 - Alcohol dependence with withdrawal, uncomplicated (14) Benzodiazepine abuse Current Visit: No Status: Acute (15) Drug-induced mood disorder Current Visit: No Status: Acute (16) PCP (phencyclidine) abuse Current Visit: Yes Status: Chronic (17) Substance induced mood disorder Current Visit: No Status: Acute (18) Substance-induced sleep disorder Current Visit: No Status: Acute - AMA Did Patient Leave Against Medical Advice: No
[2018-01-21] MEDS: ESCITALOPRAM OXALATE 20 MG TABLET (FP) PO SCH (09:16)
[2018-01-21] MEDS: BENZTROPINE MESYLATE 1 MG TABLET (FP) PO SCH (09:16)
[2018-01-21] MEDS: PRENATAL VITAMINS W/ FOLIC ACID TABLET (FP) PO SCH (09:16)
[2018-01-21] MEDS: NAPROXEN 500 MG TABLET (FP) PO SCH (09:16)
[2018-01-21] MEDS: HALOPERIDOL 1 MG TABLET (FP) PO PRN (09:16)
[2018-01-21] MEDS: NICOTINE 14 MG/24 HOURS TOPICAL PATCH TD SCH (09:18)
[2018-01-21 09:42] VITALS: BP 145/80; PULSE 112; TEMP 97.7
[2018-01-21] MEDS ORDERED: LIDOCAINE 5% TOPICAL PATCH TP SCH (10:00)
== END 2018-01-21 09:55 | disposition home or self-care (01) | DRG 773 ==
LOC: YASAS 18:06 → Y6N 22:47
PROC: HZ2ZZZZ Detoxification Services for Substance Abuse Treatment (ICD-10-PCS; principal; 2018-01-15)
DX: F11.23 Opioid dependence with withdrawal (principal); F10.230 Alcohol dependence with withdrawal, uncomplicated; F13.20 Sedative, hypnotic or anxiolytic dependence, uncomplicated; F14.20 Cocaine dependence, uncomplicated; F12.20 Cannabis dependence, uncomplicated; F16.10 Hallucinogen abuse, uncomplicated; F17.210 Nicotine dependence, cigarettes, uncomplicated; F32.9 Major depressive disorder, single episode, unspecified; F19.24 Other psychoactive substance dependence with psychoactive substance-induced mood disorder; F19.282 Other psychoactive substance dependence with psychoactive substance-induced sleep disorder; F41.9 Anxiety disorder, unspecified; J45.909 Unspecified asthma, uncomplicated; Z86.69 Personal history of other diseases of the nervous system and sense organs
CPT/HCPCS: 36415; 80053; 81003; 81015; 85027; 86593; 93005; 93010; J0475

== ENCOUNTER 2018-06-10 12:16 | Inpatient (IN) | payer BC ==
[2018-06-10 16:47] VITALS: BMI 23.6
--- NOTE | 2018-06-10 18:03 | HP ---
COWS - Scale Resting Pulse: 0= [place] 80 or Below Sweatin= Chills/Flushing Restless Observation: 1= Difficult to Sit Still Pupil Size: 1= Pupils >than Normal Bone or Joint Aches: 1= Mild Discomfort Runny Nose/ Eye Tearin= Runny Nose/Eyes GI Upset > 30mins: 3= Vomiting/Diarrhea Tremor Observation: 1= Tremor [place], Not Seen Yawning Observation: 0= None Anxiety or Irritability: 2=Irritable/Anxious Goose Flesh Skin: 0=Smooth Skin COWS Score: 12 CIWA Score - Admission Criteria OASAS Guidelines: Admission for Medically Managed Detox: Requires at least one of the followin. CIWA greater than 12 2. Seizures within the past 24 hours 3. Delirium tremens within the past 24 hours 4. Hallucinations within the past 24 hours 5. Acute intervention needed for co occurring medical disorder 6. Acute intervention needed for co occurring psychiatric disorder 7. Severe withdrawal that cannot be handled at a lower level of care (continued vomiting, continued diarrhea, abnormal vital signs) requiring intravenous medication and/or fluids 8. Admission ROS [facility] Chief Complaint: heroin detox Allergies/Adverse Reactions: Allergies Allergy/AdvReac Type Severity Reaction Status Date / Time No Known Allergies Allergy Verified 06/10/18 16:59 History of Present Illness: 33 yo female with hx nicotine and heroin (nasal) dependence is here seeking detox. PMHX: Asthma, PTSD, anxiety and depression. Last detox [facility] December 2017. Denies hx of seizures or blackouts. Exam Limitations: No Limitations - Ebola screening Have you traveled outside of the country in the last 21 days: No Have you had contact with anyone from an Ebola affected area: No Have you been sick,other than usual withdrawal symptoms: No - Review of Systems Constitutional: Chills, Loss of Appetite, Changes in sleep, Unintentional Wgt. Loss EENT: reports: Nose Congestion (runny nose) Respiratory: reports: No Symptoms reported Cardiac: reports: No Symptoms Reported GI: reports: Nausea, Poor Appetite, Poor Fluid Intake, Vomiting : reports: No Symptoms Reported Musculoskeletal: reports: Back Pain, Muscle Pain Integumentary: reports: No Symptoms Reported Neuro: reports: Headache Endocrine: reports: Increased Thirst Hematology: reports: Anemia Psychiatric: reports: Orientated x3, Anxious Other Systems: Reviewed and Negative Patient History - Patient Medical History Hx Anemia: Yes (NOT CURRENTLY ON MED) Hx Asthma: Yes Hx Chronic Obstructive Pulmonary Disease (COPD): No Hx Cancer: No Hx Cardiac Disorders: No Hx Congestive Heart Failure: No Hx Hypertension: No Hx Hypercholesterolemia: No Hx Pacemaker: No HX Cerebrovascular Accident: No Hx Seizures: No Hx Dementia: No Hx Diabetes: No Hx Gastrointestinal Disorders: No Hx Liver Disease: No Hx Genitourinary Disorders: No Hx Sexually Transmitted Disorders: No Hx Renal Disease (ESRD): No Hx Thyroid Disease: No Hx Human Immunodeficiency Virus (HIV): No (NEGATIVE 2018) Hx Hepatitis C: No (NEGATIVE HX) Hx Depression: Yes Hx Suicide Attempt: No (DENIES PAST OR PRESENT S/I) Hx Bipolar Disorder: No Hx Schizophrenia: No - Patient Surgical History Past Surgical History: Yes Hx Neurologic Surgery: No Hx Cataract Extraction: No Hx Cardiac Surgery: No Hx Lung Surgery: No Hx Breast Surgery: No Hx Breast Biopsy: No Hx Abdominal Surgery: No Hx Appendectomy: No Hx Cholecystectomy: No Hx Genitourinary Surgery: No Hx Section: Yes (2005, 2016) Hx Orthopedic Surgery: No Anesthesia Reaction: No - PPD History Date: 06/05/17 PPD to be Administered?: No - Reproductive History Last Menstrual Period: 12/16/17 - Smoking Cessation Smoking history: Current every day smoker Have you smoked in the past 12 months: Yes Aproximately how many cigarettes per day: 20 Hx Chewing Tobacco Use: No Initiated information on smoking cessation: Yes 'Breaking Loose' booklet given: 06/10/18 - Substance & Tx. History Hx Alcohol Use: Yes Hx Substance Use: Yes Substance Use Type: Alcohol, Heroin Hx Substance Use Treatment: Yes ([facility] December 2017) - Substances Abused Heroin Route: SNIFF Frequency: Daily Amount used: 8 BAGS Age of first use: 22 Date of Last Use: 06/10/18 xanax Route: Oral Frequency: Daily Amount used: 2 mg x 4 Age of first use: 27 Date of Last Use: 06/10/18 Family Disease History - Family Disease History Family Disease History: Heart Disease: Sister (HEART TRANSPLANT-), CA: Sister, Other: Grandparent ( ), Father (PARKINSONS DISEASE), Mother (HTN ) Admission Physical Exam BHS - Vital Signs Vital Signs: Vital Signs - 24 hr 06/10/18 16:44 Temperature 98.7 F Pulse Rate 66 Respiratory 18 Rate Blood Pressure 117/77 - Physical General Appearance: Yes: Disheveled, Thin, Anxious HEENTM: Yes: EOMI, Hearing grossly Normal, Normal ENT Inspection, Normocephalic , Normal Voice, ANICETO, Pharynx Normal, Tm's normal, Rhinorrhea Respiratory: Yes: Chest Non-Tender, Lungs Clear, Normal Breath Sounds, No Respiratory Distress, No Accessory Muscle Use Neck: Yes: Within Normal Limits Breast: Yes: Breast Exam Deferred Cardiology: Yes: Regular Rhythm, Regular Rate Abdominal: Yes: Normal Bowel Sounds, Non Tender, Flat, Soft Genitourinary: Yes: Within Normal Limits Back: Yes: Normal Inspection Musculoskeletal: Yes: full range of Motion, Gait Steady, Pelvis Stable, Back pain Extremities: Yes: Normal Capillary Refill, Normal Inspection, Normal Range of Motion, Non-Tender 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: 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, Fully Oriented, Alert, Motor Strength 5/5, Depressed Affect Integumentary: Yes: Normal Color, Warm, Diaphoresis Lymphatic: Yes: Within Normal Limits - Diagnostic (1) Sedative, hypnotic or anxiolytic dependence with withdrawal, uncomplicated Current Visit: Yes Status: Acute (2) Asthma Current Visit: Yes Status: Chronic Qualifiers: Asthma severity: mild Asthma persistence: unspecified Asthma complication type: uncomplicated Qualified Code(s): J45.909 - Unspecified asthma, uncomplicated (3) Nicotine dependence Current Visit: Yes Status: Chronic Qualifiers: Nicotine product type: cigarettes Substance use status: uncomplicated Qualified Code(s): F17.210 - Nicotine dependence, cigarettes, uncomplicated (4) Opioid dependence with withdrawal Current Visit: Yes Status: Acute Cleared for Admission [facility] - Detox or Rehab [facility] Level of Care: Medically Managed Detox Regimen/Protocol: Methadone/Valium [facility] Breath Alcohol Content Breath Alcohol Content: 0 Urine Pregancy Test - Result Urine Test Results: Negative - NO line present Urine Drug Screen - Results Drug Screen Negative: No Urine Drug Screen Results: THC-Marijuana, VAMSI-Cocaine, OPI-Opiates, BZO- Benzodiazepines, MTD-Methadone, BUP-Suboxone Inpatient Rehab Admission - Rehab Decision to Admit Inpatient rehab admission?: No
[2018-06-10] MEDS ORDERED: ALBUTEROL SO4 8 GM HFA INHALER IH PRN (18:11)
[2018-06-10] MEDS ORDERED: MAGNESIUM CITRATE 300 ML BOTTLE PO PRN (18:13)
[2018-06-10] MEDS ORDERED: NICOTINE POLACRILEX 2 MG GUM BUC PRN (18:13)
[2018-06-10] MEDS ORDERED: cloNIDine HCL 0.1 MG TABLET PO PRN (18:13)
[2018-06-10] MEDS ORDERED: ACETAMINOPHEN 325 MG TABLET (FP) PO PRN ×2 (18:13)
[2018-06-10] MEDS ORDERED: MAG HYDROX/AL HYDROX/SIMETH 30 ML UNIT-DOSE CUP PO PRN (18:13)
[2018-06-10] MEDS ORDERED: MENTHOL/PHENOL 1 EACH UD MM PRN (18:13)
[2018-06-10] MEDS ORDERED: BISMUTH SUBSALICYLATE 524 MG/30 ML UD PO PRN (18:13)
[2018-06-10] MEDS ORDERED: MAGNESIUM HYDROX 2400MG/30ML ORAL SUSPENSION 30 ML CUP PO PRN (18:13)
[2018-06-10] MEDS ORDERED: IBUPROFEN 400 MG TABLET (FP) PO PRN (18:13)
[2018-06-10] MEDS ORDERED: METHOCARBAMOL 500 MG TABLET PO PRN (18:13)
[2018-06-10] MEDS ORDERED: METHADONE HCL 10 MG TABLET (FOR DETOX USE ONLY) PO ONE ×2 (18:45→23:00)
[2018-06-10] MEDS: diazePAM 5 MG TABLET PO SCH (21:24)
[2018-06-10] MEDS: THIAMINE HCL 100 MG TABLET (FP) PO SCH (21:24)
[2018-06-10] MEDS ORDERED: QUEtiapine FUMARATE 100 MG TABLET (FP) PO ONE (22:00)
[2018-06-11] MEDS: diazePAM 5 MG TABLET PO SCH ×3 (06:20→23:29)
[2018-06-11] MEDS ORDERED: METHADONE HCL 10 MG TABLET (FOR DETOX USE ONLY) PO ONE (10:00)
--- NOTE | 2018-06-11 10:02 | PN ---
[facility] CIWA - CIWA Score Nausea/Vomitin-No Nausea/No Vomiting Muscle Tremors: 2 Anxiety: 3 Agitation: 2 Paroxysmal Sweats: 1-Minimal Palms Moist Orientation: 1-Uncertain about Date Tacttile Disturbances: 0-None Auditory Disturbances: 0-None Visual Disturbances: 0-None Headache: 1-Very Mild CIWA-Ar Total Score: 10 [facility] COWS - Scale Resting Pulse: 0= [place] 80 or Below Sweatin= Chills/Flushing Restless Observation: 0= Sits Still Pupil Size: 0= Normal to Room Light Bone or Joint Aches: 2= Severe Diffuse Aches Runny Nose/ Eye Tearin= Nasal Congestion GI Upset > 30mins: 2= Nausea/Diarrhea Tremor Observation of Outstretched Hands: 1= Tremor [place], Not Seen Yawning Observation: 1= 1-2x During Session Anxiety or Irritability: 2=Irritable/Anxious Goose Flesh Skin: 0=Smooth Skin COWS Score: 10 [facility] Progress Note (SOAP) Subjective: anxiety body aches discuss oral fluid and healthy dietary intake Objective: 06/11/18 10:02 Vital Signs Temperature 97.9 F 06/11/18 09:34 Pulse Rate 86 06/11/18 09:34 Respiratory Rate 16 06/11/18 09:34 Blood Pressure 94/44 L 06/11/18 09:34 O2 Sat by Pulse Oximetry (%) 06/11/18 10:02 lab pending Assessment: 06/11/18 10:02 withdrawal sx Plan: continue detox
[2018-06-11] MEDS: NICOTINE 14 MG/24 HOURS TOPICAL PATCH TD SCH (10:37)
[2018-06-11] MEDS: PRENATAL VITAMINS W/ FOLIC ACID TABLET (FP) PO SCH (10:37)
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
--- NOTE | 2018-06-11 11:02 | EKG ---
Test Reason : Blood Pressure : / mmHG Vent. Rate : 057 BPM Atrial Rate : 057 BPM P-R Int : 112 ms QRS Dur : 086 ms QT Int : 462 ms P-R-T Axes : 032 039 035 degrees QTc Int : 449 ms SINUS BRADYCARDIA OTHERWISE NORMAL ECG WHEN COMPARED WITH ECG OF 16-JAN-2018 00:20, T WAVE INVERSION NOW EVIDENT IN ANTERIOR LEADS Confirmed by CALIN VILLA MD ([id number]) on 06/11/2018 11:02:35 AM Referred By: Confirmed By:CALIN VILLA MD
[2018-06-11 11:09] LABS: HEMATOCRIT 34.3 % (32.4-45.2); HEMOGLOBIN 11.9 GM/dL (10.7-15.3); MCH 31.6 pg (25.7-33.7); MCHC 34.8 g/dl (32.0-36.0); MEAN CELL VOLUME 90.8 fl (80-96); MEAN PLT VOLUME 8.5 fl (7.5-11.1); PLATELET COUNT 335 K/MM3 (134-434); RBC 3.78 M/mm3 (3.60-5.2); RDW 15.3 % (11.6-15.6); WHITE BLOOD COUNT 9.6 K/mm3 (4.0-10.0)
[2018-06-11] MEDS ORDERED: ESCITALOPRAM OXALATE 10 MG TABLET (FP) ONE (11:15)
[2018-06-11] MEDS: ESCITALOPRAM OXALATE 20 MG TABLET (FP) PO SCH (11:19)
[2018-06-11] MEDS: QUEtiapine FUMARATE 50 MG TABLET PO SCH (11:19)
[2018-06-11 13:21] LABS: ALBUMIN 3.6 g/dl (3.4-5.0); ALK PHOS 44 U/L (45-117); BILIRUBIN,TOTAL 0.2 mg/dL (0.2-1); BLOOD UREA NITROGEN 13 mg/dL (7-18); CALCIUM 9.5 mg/dL (8.5-10.1); CHLORIDE 104 mmol/L (98-107); CREATININE 0.9 mg/dL (0.55-1.3); GLUCOSE,RANDOM 106 mg/dL (74-106); POTASSIUM 3.9 mmol/L (3.5-5.1); SGPT/ALT 14 U/L (13-61); SODIUM 138 mmol/L (136-145); TOT PROT 6.6 g/dl (6.4-8.2)
[2018-06-11 13:49] LABS: ANION GAP 7 MMOL/L (8-16); CO2 27 mmol/L (21-32); SGOT/AST 8 U/L (15-37)
[2018-06-11] MEDS: GABAPENTIN 300 MG CAPSULE (FP) PO SCH ×2 (14:39→23:28)
[2018-06-11] MEDS: QUEtiapine FUMARATE 100 MG TABLET (FP) PO SCH (23:28)
[2018-06-11] MEDS: THIAMINE HCL 100 MG TABLET (FP) PO SCH (23:29)
[2018-06-12] MEDS: GABAPENTIN 300 MG CAPSULE (FP) PO SCH ×3 (06:04→22:19)
[2018-06-12] MEDS: diazePAM 5 MG TABLET PO PRN ×3 (06:04→19:54)
[2018-06-12] MEDS ORDERED: METHADONE HCL 10 MG TABLET (FOR DETOX USE ONLY) PO ONE (10:00)
[2018-06-12] MEDS: QUEtiapine FUMARATE 50 MG TABLET PO SCH (10:02)
[2018-06-12] MEDS: ESCITALOPRAM OXALATE 20 MG TABLET (FP) PO SCH (10:02)
[2018-06-12] MEDS: NICOTINE 14 MG/24 HOURS TOPICAL PATCH TD SCH (10:02)
[2018-06-12] MEDS: diazePAM 5 MG TABLET PO SCH ×2 (10:02→22:18)
[2018-06-12] MEDS: PRENATAL VITAMINS W/ FOLIC ACID TABLET (FP) PO SCH (10:02)
--- NOTE | 2018-06-12 12:25 | PN ---
BHS COWS - Scale Resting Pulse: 1= [place] 81-100 Sweatin= Chills/Flushing Restless Observation: 1= Difficult to Sit Still Pupil Size: 1= Pupils >than Normal Bone or Joint Aches: 1= Mild Discomfort Runny Nose/ Eye Tearin= Nasal Congestion GI Upset > 30mins: 1= Stomach Cramp Tremor Observation of Outstretched Hands: 0= None Yawning Observation: 0= None Anxiety or Irritability: 0= None [facility]HS Progress Note (SOAP) Subjective: pt states doing well overall, will go to [facility] after d/c from detox here O: Vital Signs - 24 hr 06/11/18 06/11/18 06/11/18 13:05 17:56 21:30 Temperature 98.3 F 97.8 F 97.7 F Pulse Rate 76 58 L 55 L Respiratory 18 18 18 Rate Blood Pressure 100/61 92/59 L 91/51 L 06/12/18 06/12/18 06/12/18 00:30 03:30 06:36 Temperature 97.5 F L Pulse Rate 64 Respiratory 18 16 18 Rate Blood Pressure 106/70 06/12/18 09:45 Temperature 97.8 F Pulse Rate 68 Respiratory 18 Rate Blood Pressure 103/61 Laboratory Tests 06/11/18 06/11/18 06/11/18 07:30 07:30 07:30 WBC 9.6 RBC 3.78 Hgb 11.9 Hct 34.3 MCV 90.8 MCH 31.6 MCHC 34.8 RDW 15.3 Plt Count 335 MPV 8.5 Sodium 138 Potassium 3.9 Chloride 104 Carbon Dioxide 27 Anion Gap 7 L BUN 13 Creatinine 0.9 Creat Clearance w eGFR 72.11 Random Glucose 106 Calcium 9.5 Total Bilirubin 0.2 AST 8 L ALT 14 Alkaline Phosphatase 44 L Total Protein 6.6 Albumin 3.6 RPR Titer Nonreactive a/p: continue detox protocol- f/u with [facility] at discharge
[2018-06-12] MEDS: THIAMINE HCL 100 MG TABLET (FP) PO SCH (22:18)
[2018-06-12] MEDS: QUEtiapine FUMARATE 100 MG TABLET (FP) PO SCH (22:20)
[2018-06-13] MEDS: GABAPENTIN 300 MG CAPSULE (FP) PO SCH ×3 (05:45→22:11)
[2018-06-13] MEDS ORDERED: diazePAM 5 MG TABLET PO SCH (06:00)
[2018-06-13] MEDS ORDERED: METHADONE HCL 10 MG TABLET (FOR DETOX USE ONLY) PO ONE (10:00)
--- NOTE | 2018-06-13 10:06 | PN ---
[facility] Progress Note Note: Vital Signs Temperature 97.1 F L 06/13/18 09:46 Pulse Rate 84 06/13/18 09:46 Respiratory Rate 16 06/13/18 09:46 Blood Pressure 119/72 06/13/18 09:46 O2 Sat by Pulse Oximetry (%) Laboratory Last Values WBC 9.6 K/mm3 (4.0-10.0) 06/11/18 07:30 RBC 3.78 M/mm3 (3.60-5.2) 06/11/18 07:30 Hgb 11.9 GM/dL (10.7-15.3) 06/11/18 07:30 Hct 34.3 % (32.4-45.2) 06/11/18 07:30 MCV 90.8 fl (80-96) 06/11/18 07:30 MCH 31.6 pg (25.7-33.7) 06/11/18 07:30 MCHC 34.8 g/dl (32.0-36.0) 06/11/18 07:30 RDW 15.3 % (11.6-15.6) 06/11/18 07:30 Plt Count 335 K/MM3 (134-434) 06/11/18 07:30 MPV 8.5 fl (7.5-11.1) 06/11/18 07:30 Sodium 138 mmol/L (136-145) 06/11/18 07:30 Potassium 3.9 mmol/L (3.5-5.1) 06/11/18 07:30 Chloride 104 mmol/L (98-107) 06/11/18 07:30 Carbon Dioxide 27 mmol/L (21-32) 06/11/18 07:30 Anion Gap 7 MMOL/L (8-16) L 06/11/18 07:30 BUN 13 mg/dL (7-18) 06/11/18 07:30 Creatinine 0.9 mg/dL (0.55-1.3) 06/11/18 07:30 Creat Clearance w eGFR 72.11 (>60) 06/11/18 07:30 Random Glucose 106 mg/dL (74-106) 06/11/18 07:30 Calcium 9.5 mg/dL (8.5-10.1) 06/11/18 07:30 Total Bilirubin 0.2 mg/dL (0.2-1) 06/11/18 07:30 AST 8 U/L (15-37) L 06/11/18 07:30 ALT 14 U/L (13-61) 06/11/18 07:30 Alkaline Phosphatase 44 U/L (45-117) L 06/11/18 07:30 Total Protein 6.6 g/dl (6.4-8.2) 06/11/18 07:30 Albumin 3.6 g/dl (3.4-5.0) 06/11/18 07:30 RPR Titer Nonreactive (NONREACTIVE) 06/11/18 07:30 c/o mild headaches, no visual changes, and interrupted sleep Aox3 no distress full ROM ambulating in the unit withdrawal sx continue detox increase po fluids psych follow up re: home meds d/c tomorrow AM
[2018-06-13] MEDS: ESCITALOPRAM OXALATE 20 MG TABLET (FP) PO SCH (10:33)
[2018-06-13] MEDS: NICOTINE 14 MG/24 HOURS TOPICAL PATCH TD SCH (10:34)
[2018-06-13] MEDS: PRENATAL VITAMINS W/ FOLIC ACID TABLET (FP) PO SCH (10:34)
[2018-06-13] MEDS: QUEtiapine FUMARATE 50 MG TABLET PO SCH (10:34)
[2018-06-13] MEDS: diazePAM 5 MG TABLET PO PRN ×2 (10:37→14:43)
[2018-06-13] MEDS ORDERED: cloNIDine HCL 0.1 MG TABLET PO ONE (13:00)
--- NOTE | 2018-06-13 13:55 | PN ---
Best Progress Note Note: Psychiatry Attending's note (coverage) : Called for discharge scripts. Patient is scheduled for discharge tomorrow morning. Chart reviewed. Medications revisited. Patient seen. customer success intern Danyell's consult note of 06/09/18 : appreciated. Medications are well tolerated. Patient is ambulatory. Steady gait. Stable mental status. Recent pharmacy claims are also reviewed. Intervention : Scripts are electronically sent to [facility] : Lexapro 20 mg tab # 30 : 1 tab po daily. Seroquel 100 mg tab # 30 : 1 tab po bid. Side effects/benefits re-discussed with the patient. Ms Greene is in agreement with this plan of care.
[2018-06-13] MEDS: THIAMINE HCL 100 MG TABLET (FP) PO SCH (22:11)
[2018-06-13] MEDS: QUEtiapine FUMARATE 100 MG TABLET (FP) PO SCH (22:11)
[2018-06-14] MEDS ORDERED: METHADONE HCL 5 MG TABLET (FOR DETOX USE ONLY) PO ONE (06:00)
[2018-06-14] MEDS: GABAPENTIN 300 MG CAPSULE (FP) PO SCH (06:21)
[2018-06-14 06:34] VITALS: BP 118/71; PULSE 87; TEMP 97.3
--- NOTE | 2018-06-14 10:53 | DS ---
[facility] Detox Discharge Summary Admission Date: 06/10/18 Discharge Date: 06/14/18 - History Present History: Opioid Dependence Additional Comments: 33 years old female admitted on 06/10/18 for opiate withdrawal stabilization completed detox regimen aftercare patient preferring return to [facility] provider for medical and mental issues Pertinent Past History: keep medication list in wallet medication adherence update medication list when change medication - Physical Exam Results Vital Signs: Vital Signs Temperature 97.3 F L 06/14/18 06:33 Pulse Rate 87 06/14/18 06:33 Respiratory Rate 18 06/14/18 06:33 Blood Pressure 118/71 06/14/18 06:33 O2 Sat by Pulse Oximetry (%) Pertinent Admission Physical Exam Findings: opiate withdrawal sx Laboratory Last Values WBC 9.6 K/mm3 (4.0-10.0) 06/11/18 07:30 RBC 3.78 M/mm3 (3.60-5.2) 06/11/18 07:30 Hgb 11.9 GM/dL (10.7-15.3) 06/11/18 07:30 Hct 34.3 % (32.4-45.2) 06/11/18 07:30 MCV 90.8 fl (80-96) 06/11/18 07:30 MCH 31.6 pg (25.7-33.7) 06/11/18 07:30 MCHC 34.8 g/dl (32.0-36.0) 06/11/18 07:30 RDW 15.3 % (11.6-15.6) 06/11/18 07:30 Plt Count 335 K/MM3 (134-434) 06/11/18 07:30 MPV 8.5 fl (7.5-11.1) 06/11/18 07:30 Sodium 138 mmol/L (136-145) 06/11/18 07:30 Potassium 3.9 mmol/L (3.5-5.1) 06/11/18 07:30 Chloride 104 mmol/L (98-107) 06/11/18 07:30 Carbon Dioxide 27 mmol/L (21-32) 06/11/18 07:30 Anion Gap 7 MMOL/L (8-16) L 06/11/18 07:30 BUN 13 mg/dL (7-18) 06/11/18 07:30 Creatinine 0.9 mg/dL (0.55-1.3) 06/11/18 07:30 Creat Clearance w eGFR 72.11 (>60) 06/11/18 07:30 Random Glucose 106 mg/dL (74-106) 06/11/18 07:30 Calcium 9.5 mg/dL (8.5-10.1) 06/11/18 07:30 Total Bilirubin 0.2 mg/dL (0.2-1) 06/11/18 07:30 AST 8 U/L (15-37) L 06/11/18 07:30 ALT 14 U/L (13-61) 06/11/18 07:30 Alkaline Phosphatase 44 U/L (45-117) L 06/11/18 07:30 Total Protein 6.6 g/dl (6.4-8.2) 06/11/18 07:30 Albumin 3.6 g/dl (3.4-5.0) 06/11/18 07:30 RPR Titer Nonreactive (NONREACTIVE) 06/11/18 07:30 lab noted - Treatment Hospital Course: Detox Protocol Followed, Detoxed Safely, Responded well, Discharged Condition Good, Rehab Referral Accepted Patient has Accepted a Rehab Referral to: [facility] treatment program - Medication Discharge Medications: Ambulatory Orders Alprazolam [Xanax] 2 mg PO QID 06/03/17 Albuterol Sulfate Inhaler - [Ventolin HFA Inhaler -] 2 inh PO Q4H PRN #1 inhaler 06/08/17 Escitalopram Oxalate [Lexapro -] 20 mg PO DAILY #30 tablet 01/19/18 Gabapentin [Neurontin -] 600 mg PO BID 06/10/18 Quetiapine Fumarate [Seroquel -] 100 mg PO BID 06/10/18 Zolpidem Tartrate [Ambien] 10 mg PO DAILY 06/10/18 Escitalopram Oxalate [Lexapro -] 20 mg PO DAILY #30 tablet 06/13/18 Quetiapine Fumarate [Seroquel] 100 mg PO BID #30 tablet 06/13/18 - Diagnosis (1) Opioid dependence with withdrawal Status: Acute (2) Substance induced mood disorder Status: Suspected (3) Asthma Status: Chronic Qualifiers: Asthma severity: mild Asthma persistence: intermittent Asthma complication type: with status asthmaticus Qualified Code(s): J45.22 - Mild intermittent asthma with status asthmaticus (4) Nicotine dependence Status: Acute Qualifiers: Nicotine product type: cigarettes Substance use status: in withdrawal Qualified Code(s): F17.213 - Nicotine dependence, cigarettes, with withdrawal - AMA Did Patient Leave Against Medical Advice: No
== END 2018-06-14 09:17 | disposition home or self-care (01) | DRG 773 ==
LOC: YASAS 12:16 → Y3N 17:52
PROVIDERS: ADMIT Surgery; ATTEND Surgery
PROC: HZ2ZZZZ Detoxification Services for Substance Abuse Treatment (ICD-10-PCS; principal; 2018-06-10)
PROC: HZ2ZZZZ Detoxification Services for Substance Abuse Treatment (ICD-10-PCS; 2018-06-10)
DX: F11.23 Opioid dependence with withdrawal (principal); F13.230 Sedative, hypnotic or anxiolytic dependence with withdrawal, uncomplicated; F17.213 Nicotine dependence, cigarettes, with withdrawal; F19.24 Other psychoactive substance dependence with psychoactive substance-induced mood disorder; F19.282 Other psychoactive substance dependence with psychoactive substance-induced sleep disorder; F39 Unspecified mood [affective] disorder; F32.9 Major depressive disorder, single episode, unspecified; J45.22 Mild intermittent asthma with status asthmaticus
CPT/HCPCS: 36415; 80053; 85027; 86593; 93005; 93010; J0735